=== PATIENT | female | born 1955 | race Caucasian/White ===

== ENCOUNTER 2017-09-23 13:02 | Emergency (ER) | payer MEDICAID ==
[~2017-09-23] VITALS: Ht 165.1 cm; Wt 99.8 kg
[~2017-09-23 13:02] MED LIST: AMLO5TAB2 PO; CYAN100023 PO; ERGO1CAP23 PO; FURO20TA3 PO; HYDR-4683 PO; LEVO25TA6 PO; LISI30TA36 PO; METO25TA5 PO; MONT10TA34 PO; POTA10TA34 PO; SIMV-13 PO
[2017-09-23 15:18] LABS: Basophils # (auto) 0.1 uL; Basophils % (auto) 0.3 % (0.0-2.0); Eosinophils # (auto) 0 uL; Eosinophils % (auto) 0.1 % (0.0-7.0); Hematocrit 41.4 % (36.0-46.0); Hemoglobin 13.8 g/dL (12.2-16.2); Lymphocytes # (auto) 0.9 uL; Lymphocytes % (auto) 4.5 % (10.0-50.0); Mean Corpuscular Hgb Conc. 33.4 g/dL (32.0-36.0); Mean Corpuscular Volume 92.9 fL (80.0-100.0); Monocytes % (auto) 4.7 % (0.0-12.0); Neutrophils # (auto) 18.9 uL; Neutrophils % (auto) 90.4 % (37.0-80.0); Nucleated Red Blood Cells % 0.1 %; Platelet Count (auto) 208 10^3/uL (140-450); Red Blood Cells 4.45 10^6/uL (4.0-5.20); Red Cell Distribution Width 13.5 % (11.8-14.3)
[2017-09-23 15:38] LABS: Albumin 2.9 g/dL (3.4-5.0); BUN/Creatinine Ratio 12.7; Bilirubin, Total 2.4 mg/dL (0.2-1.0); Calcium 8.3 mg/dL (8.5-10.1); Potassium 4.1 mmol/L (3.5-5.1); Total Protein 7.9 g/dL (6.4-8.2)
[2017-09-23] MEDS ORDERED: SODIUM CHLORIDE 0.9% 1,000 ML IV ONE (20:30)
[2017-09-23 21:33] LABS: INR 0.97 (0.9-1.15); Partial Thromboplastin Time 32.5 sec (22.64-33.71); Prothrombin Time 10.6 sec (9.37-12.3)
[2017-09-23 23:35] LABS: Fibrinogen 967.2 mg/dL (177-375)
[2017-09-24 03:29] VITALS: BP 139/78
== END 2017-09-24 08:53 | disposition left against medical advice (07) ==
LOC: ER 13:02
DX: M54.5 Low back pain (principal); R30.0 Dysuria; R10.30 Lower abdominal pain, unspecified; Z53.21 Procedure and treatment not carried out due to patient leaving prior to being seen by health care provider
CPT/HCPCS: 36415; 71010; 74176; 80053; 82553; 83605; 84484; 85025; 85379; 85384; 85610; 85730; 87040

== ENCOUNTER 2024-12-26 18:53 | Inpatient (IN) | payer OTHER, MEDICAID ==
[~2024-12-26] VITALS: Ht 165.1 cm; Wt 101.9 kg
[~2024-12-26 18:53] MED LIST changes: +AMLO1TAB22 PO; -AMLO5TAB2 PO; +ATOR40TA52 PO; +CHOL20003 PO; +DOCU250C12 PO; +GLIP5TAB21 PO; -HYDR-4683 PO; +HYDR-4833 PO; +INSU100S6 SC; -LISI30TA36 PO; +LISI30TA8 PO; +LORA-483 PO; +MONT-8 PO; -MONT10TA34 PO; +POTA-215 PO; -POTA10TA34 PO; +PREG200C36 PO; -SIMV-13 PO; +SIMV40TA18 PO
[2024-12-26] MEDS: SODIUM CHLORIDE 0.9% 1,000 ML IVB ONE (19:15)
--- NOTE | 2024-12-26 19:15 | ED.PDOC ---
Altered Mental Status HPI Comments 70-year-old female with only known history of DM and ESRD brought in by EMS presents with a chief complaint of ALOC and malaise. Per EMS, called 911 due to patient having generalized malaise for the past few days, but also states that for the past hour, patient has become altered and is not making coherent sense. Patient is currently more coherent now according to EMS upon arrival than when they arrived on scene. Patient thinks the year is 192. Patient was hypertensive and tachycardic upon arrival according to EMS. Blood sugar was 253. 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 Family History Family History: Unknown, Pt Confused Social History Smoker: Unknown, Pt Confused Alcohol: Unknown, Pt Confused Drugs: Unknown, Pt Confused Lives In: Home Constitutional: reports: malaise; denies: chills, diaphoresis, fatigue, fever, sweats, weakness, others EENTM: denies: blurred vision, double vision, ear bleeding, ear discharge, ear drainage, ear pain, ear ringing, eye pain, eye redness, hearing loss, mouth pain, mouth swelling, nasal discharge, nose bleeding, nose congestion, nose pain, photophobia, tearing, throat pain, throat swelling, voice changes, others Respiratory: denies: cough, hemoptysis, orthopnea, SOB at rest, shortness of breath, SOB with excertion, stridor, wheezing, others Cardiovascular: denies: chest pain, dizzy spells, diaphoresis, Dyspnea on exertion, edema, irregular heart beat, left arm pain, lightheadedness, palpitations, PND, syncope, others Gastrointestinal: denies: abdomen distended, abdominal pain, blood streaked bowels, constipated, diarrhea, dysphagia, difficulty swallowing, hematemesis, melena, nausea, poor appetite, poor fluid intake, rectal bleeding, rectal pain, vomiting, others Genitourinary: denies: abnormal vagina bleeding, burning, dyspareunia, dysuria, flank pain, frequency, hematuria, incontinence, pain, , vagina discharge, urgency, others Neurological: denies: dizziness, fainting, headache, left sided numbness, left sided weakness, numbness, paresthesia, pre-existing deficit, right sided numbness, right sided weakness, seizure, speech problems, tingling, tremors, weakness, others Musculoskeletal: denies: back pain, gout, joint pain, joint swelling, muscle pain, muscle stiffness, neck pain, others Integumetry: denies: bruises, change in color, change in hair/nails, dryness, laceration, lesions, lumps, rash, wounds, others Allergic/Immunocompromised: denies: Difficulty Healing, Frequent Infections, Hives, Itching, others Hematologic/Lymphatic: denies: anemia, blood clots, easy bleeding, easy bruising, swollen glands, others Endocrine: denies: excessive hunger, excessive sweating, excessive thirst, excessive urination, flushing, intolerance to cold, intolerance to heat, unexplained weight gain, unexplained weight loss, others Psychiatric: denies: anxiety, bipolar disorder, depression, hopeless, panic disorder, schizophrenia, sleepless, suicidal, others Unable to Obtain due to: Altered Mental Status All Other Systems: Reviewed and Negative Physical Exam General Appearance: No Apparent Distress, Normal HEENT: Normal ENT Inspection, Pharynx Normal, TMs Normal Neck: Full Range of Motion, Non-Tender, Normal, Normal Inspection Respiratory: Chest Non-Tender, Lungs Clear, No Accessory Muscle Use, No Respiratory Distress, Normal Breath Sounds Cardiovascular: No Edema, No JVD, No Murmur, No Gallop, Normal Peripheral Pulses, Regular Rate/Rhythm Breast Exam: Deferred Gastrointestinal: No Organomegaly, Non Tender, No Pulsatile Mass, Normal Bowel Sounds, Soft Genitalia: Deferred Pelvic: Deferred Rectal: Deferred Extremities: No calf tenderness, Normal capillary refill, Normal inspection, Normal range of motion, Non-tender, No pedal edema Musculoskeletal : Apperance: Normal Neurologic: Alert, 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 Was a procedure done?: No Differential Diagnosis (ALOC) Differential Diagnosis: Dehydration, Hypoglycemia, DKA, Encephalopathy, Meningitis, Sepsis, Hypoxemia, Closed Head Injury, Mass Lesion, SAH, Drug Overdose, ETOH Intoxication, Renal Failure, Other X-Ray, Labs, Meds, VS Vital Signs Date Time Temp Pulse Resp B/P (MAP) Pulse Ox O2 Delivery O2 Flow Rate FiO2 12/26/24 20:25 117 24 94 Nasal Cannula* 3 32 12/26/24 20:01 98.8 133 24 127/68 (87) 94 98.8 12/26/24 20:00 122 12/26/24 18:56 137 12/26/24 18:56 98.3 135 14 190/92 (124) 92 98.3 Lab Test 12/26/24 21:00 12/26/24 20:13 12/26/24 19:48 Range/Units Troponin I High Sensitivity Pending 284 *H </=34 ng/L White Blood Count 16.5 H 4.4-10.8 10^3/uL Red Blood Count 3.92 L 4.0-5.20 10^6/uL Hemoglobin 12.2 12.2-16.2 g/dL Hematocrit 36.6 36.0-46.0 % Mean Corpuscular Volume 93.4 80.0-100.0 fL Mean Corpuscular Hemoglobin 31.2 28.0-32.0 pg Mean Corpuscular Hemoglobin Concent 33.4 32.0-36.0 g/dL Red Cell Distribution Width 13.5 11.8-14.3 % Platelet Count 193 140-450 10^3/uL Mean Platelet Volume 10.1 6.9-10.8 fL Neutrophils (%) (Auto) 92.1 H 37.0-80.0 % Lymphocytes (%) (Auto) 3.5 L 10.0-50.0 % Monocytes (%) (Auto) 3.7 0.0-12.0 % Eosinophils (%) (Auto) 0.3 0.0-7.0 % Basophils (%) (Auto) 0.4 0.0-2.0 % Neutrophils # (Auto) 15.2 H 1.6-8.6 10 ^3/uL Lymphocytes # (Auto) 0.6 0.4-5.4 10 ^3/uL Monocytes # (Auto) 0.6 0-1.3 10 ^3/uL Eosinophils # (Auto) 0.1 0-0.8 10 ^3/uL Basophils # (Auto) 0.1 0-0.2 10 ^3/uL Nucleated Red Blood Cells 0.0 % Sodium Level 138 136-145 mmol/L Potassium Level 4.5 3.5-5.1 mmol/L Chloride Level 110 H 98-107 mmol/L Carbon Dioxide Level 15 L 20-31 mmol/L Anion Gap 13 5-15 Blood Urea Nitrogen 35 H 9-23 mg/dL Creatinine 2.38 H 0.550-1.02 mg/dL Glomerular Filtration Rate Calc 21 >90 mL/min BUN/Creatinine Ratio 14.7 10.0-20.0 Serum Glucose 241 H 74-106 mg/dL Lactic Acid Level 1.3 0.4-2.0 mmol/L Calcium Level 9.2 8.7-10.4 mg/dL Magnesium Level 1.4 L 1.6-2.6 mg/dL Total Bilirubin 0.6 0.2-1.0 mg/dL Aspartate Amino Transferase (AST) 18 13-40 U/L Alanine Aminotransferase (ALT) 13 7-40 U/L Alkaline Phosphatase 89 46-116 U/L Total Protein 7.3 5.7-8.2 g/dL Albumin 4.0 3.2-4.8 g/dL Lipase 79 H 12-53 U/L Salicylates Level < 3.0 -30 mg/dL Acetaminophen Level < 2.0 L 10.0-20.0 UG/ML Plasma/Serum Blood Alcohol 6.4 <10 mg/dL Urine Color Light-yellow Yellow Urine Clarity Turbid H Clear Urine pH 6.5 5.0-9.0 Urine Specific [place] 1.014 1.001-1.035 Urine Protein 3+ H Negative Urine Ketones Negative Negative Urine Blood 1+ H Negative /uL Urine Nitrite Negative Negative Urine Bilirubin Negative Negative Urine Urobilinogen Normal Negative mg/dL Urine Leukocyte Esterase 2+ Negative /uL Urine RBC 19 0 - 4 /hpf Urine WBC Clumps Present None Seen /hpf Urine Microscopic WBC 117 H 0-5 /HPF Urine Squamous Epithelial Cells Few <5 /hpf Urine Bacteria Mod H None Seen /hpf Urine Glucose 1+ H Normal mg/dL Urine Opiates Screen Neg NEGATIVE Urine Fentanyl Screen Neg NEGATIVE Urine Barbiturates Screen Neg NEGATIVE Urine Phencyclidine Screen Neg NEGATIVE Urine Amphetamines Screen Neg NEGATIVE Urine Benzodiazepines Screen Neg NEGATIVE Urine Cocaine Screen Neg NEGATIVE Urine Cannabinoids Screen Pos NEGATIVE Current Medications Medications (Trade) Dose Ordered Sig/Ayaan Route Start Time Stop Time Status Last Admin Sodium Chloride 1,000 ml @ 1,000 mls/hr Q1H ONCE IVB 12/26/24 19:15 12/26/24 20:14 DC 12/26/24 19:15 Time of 1ST Reevaluation: 19:29 Reevaluation 1ST: Unchanged Patient Education/Counseling: Diagnosis, Treatment, Prognosis Family Education/Counseling: No Family Present Sepsis Sepsis Reasesment Focused Exam Sepsis focused exam: focus exam completed (In the initial resuscitation at least 30 mL/kg of IV crystalloid fluid was NOT given within the first 3 hr due to concerns of fluid overload), time: (2099) Departure 1 Departure Time of Disposition: 21:38 Impression: Primary Impression: Altered mental status Additional Impressions: Metabolic encephalopathy UTI (urinary tract infection) Acute renal injury Intermediate coronary syndrome Disposition: ADMITTED INPATIENT Admit to: [facility] Condition: Stable Discharged With: Self Comments Altered Mental Status with Multiple Medical Problems Chief Complaint: Generalized weakness and confusion History of Present Illness: 70-year-old female with past medical history of hypertension, diabetes, and renal insufficiency who was brought in by ambulance after her found her at home with generalized weakness and confusion. Patient is noted to be confused to date and place but oriented to self. Initial workup reveals multiple acute medical issues including urinary tract infection with elevated WBC, elevated troponin, mild lipase elevation, acute kidney injury, hyperglycemia, and radiographic findings concerning for left lower lobe pneumonia. Review of Systems: Constitutional: Positive for generalized weakness Neurological: Positive for confusion Otherwise limited due to patient's mental status Lab Results: WBC: 16.5 Troponin: 284 Lipase: 79 (slightly elevated) BUN: 35 Creatinine: 2.38 Blood glucose: 241 Urinalysis: Consistent with UTI Imaging and Other Relevant Results: Chest X-ray: Left lower lobe opacity, possibly representing pneumonia CT Head: No acute pathology Medical Decision Making: Summary Statement: 70-year-old female with multiple comorbidities presenting with altered mental status found to have multiple acute medical problems including UTI, NSTEMI, acute kidney injury, and possible pneumonia. Problem List: 1. Urinary tract infection 2. Non-ST elevation myocardial infarction 3. Acute kidney injury 4. Left lower lobe pneumonia 5. Hyperglycemia Differential Diagnosis: Sepsis secondary to UTI/pneumonia, Acute coronary syndrome, Metabolic encephalopathy, Stroke, Dehydration ED Course: Patient received IV fluids, IV antibiotics (Rocephin and azithromycin), and aspirin. CT head obtained to rule out acute intracranial process. Multiple acute medical issues identified requiring inpatient admission. Assessment and Plan: 1. Altered Mental Status: - Multifactorial, likely due to combination of infection, renal dysfunction, and cardiac issue - Will require inpatient monitoring and management 2. Urinary Tract Infection: - Started on IV Rocephin - Continue antibiotics and monitor response 3. Non-ST Elevation Myocardial Infarction: - Troponin elevated at 284 - Started on aspirin - Requires admission for further cardiac workup and management 4. Acute Kidney Injury: - Cr 2.38, BUN 35 - Likely multifactorial due to infection and possible dehydration - IV fluids started 5. Left Lower Lobe Pneumonia: - Started on azithromycin - Continue antibiotics and monitor respiratory status 6. Hyperglycemia: - Blood glucose 241 - Will require monitoring and adjustment of diabetes management Disposition: Admit to hospital for management of multiple medical problems Billing Information: ICD-10: R41.0 - Disorientation ICD-10: N39.0 - Urinary tract infection ICD-10: N17.9 - Acute kidney failure, unspecified ICD-10: J18.9 - Pneumonia, unspecified organism ICD-10: I21.4 - Non-ST elevation myocardial infarction Critical Care Note Critical Care Time?: Yes (35 min-critical care time only) Critical care comment: Total critical care time: Approximately 36 minutes Due to a high probability of clinically significant, life threatening deteriora tion, the patient required my highest level of preparedness to intervene emergently and I personally spent this critical care time directly and personally managing the patient. This critical care time included obtaining a history; examining the patient; pulse oximetry; ordering and review of studies; arranging urgent treatment with development of a management plan; evaluation of patient's response to treatment; frequent reassessment; and, discussions with other providers. This critical care time was performed to assess and manage the high probability of imminent, life-threatening deterioration that could result in multi-organ failure. It was exclusive of separately billable procedures and treating other patients. Stability Stability form required: No Heart Score Heart Score: Heart Score Response (Comments) Value History Slightly Suspicious 0 EKG Normal 0 Age >65 2 Risk Factors 1 or 2 risk factors 1 Troponin 1-2 x's Normal limit 1 Total 4 I personally scribed for JEAN HOWELL MD ([email or web address]) on 12/26/24 at 19:14. Electronically submitted by Raudel Arango ([email or web address]). JEAN HOWELL MD Dec 26, 2024 19:14
--- NOTE | 2024-12-26 19:35 | DVH ---
CHEST RADIOGRAPH Indication: SOB Technique: Single frontal view of the chest was obtained Comparison: None FINDINGS: Lines and Tubes: None Lungs: No focal consolidation. Pleura: No effusion. No pneumothorax. Cardiomediastinal contours: Unremarkable Bones: Total right shoulder replacement IMPRESSION: 1. Increased density in the left lower lung field may be due to overlying breast tissue or airspace d isease.
--- NOTE | 2024-12-26 19:44 | DVH ---
EXAM: CT HEAD WITHOUT CONTRAST INDICATION: ALOC TECHNIQUE: CT of the head without intravenous contrast. Radiation Dose Information: CT Dose: CTDI volume is 48.79 mGy. Dose-length product is 879.57 mGy*cm The dose indicators for CT are the volume Computed Tomography (CT) Dose Index (CTDIvol) and the Dose Length Product (DLP), and are measured in units of mGy and mGy-cm, respectively. These indicators are not patient dose, but values generated from the CT scanner acquisition factors. The report includes radiation exposure data for exposures received during this examination. COMPARISON: None FINDINGS: There is no evidence of acute intracranial hemorrhage, extra-axial collection, mass effect, midline s hift, herniation or hydrocephalus. The ventricles, sulci and cisterns are age appropriate. The lawson-white differentiation is intact. Patchy periventricular and subcortical white matter hypoattenuation is nonspecific but may be related to small vessel ischemic disease. The visualized paranasal sinuses and mastoid air cells are clear. The surrounding soft tissues and osseous structures are unremarkable. IMPRESSION: 1. No acute intracranial hemorrhage 2. No CT findings of territorial ischemia.
[2024-12-26 20:24] LABS: Cannabinoid Screen, Urine Pos (NEGATIVE)
[2024-12-26 20:25] VITALS: PULSE 117; RESP 24; O2SAT 94
[2024-12-26 20:36] LABS: Amphetamine Screen, Urine Neg (NEGATIVE); Barbiturate Scree,Urine Neg (NEGATIVE); Benzodiazephine Screen, Urine Neg (NEGATIVE); Cocaine Screen, Urine Neg (NEGATIVE); Opiate Scree,Urine Neg (NEGATIVE); Phencyclidine Screen, Urine Neg (NEGATIVE)
[2024-12-26 20:40] LABS: Alanine Aminotransferase 13 U/L (7-40); Alkaline Phosphatase 89 U/L (46-116); Anion Gap 13 (5-15); Aspartate Aminotransferase 18 U/L (13-40); BUN/Creatinine Ratio 14.7 (10.0-20.0); Bilirubin, Total 0.6 mg/dL (0.2-1.0); Calcium 9.2 mg/dL (8.7-10.4); Potassium 4.5 mmol/L (3.5-5.1); Sodium 138 mmol/L (136-145); Total Protein 7.3 g/dL (5.7-8.2)
[2024-12-26 20:40] LABS: Urine Bacteria MOD /hpf (None Seen); Urine Blood 1+ /uL (Negative); Urine Clarity Turbid (Clear); Urine Color Light-Yellow (Yellow); Urine Protein, UAD 3+ (Negative); Urine Specific Gravity 1.014 (1.001-1.035); Urine Squamous Epithelial Cell FEW /hpf (<5); Urine Urobilinogen Normal (Negative); Urine WBC 117 /HPF (0-5); Urine WBC Clumps PRESENT /hpf (None Seen); Urine pH 6.5 (5.0-9.0)
[2024-12-26 20:43] LABS: Acetaminophen < 2.0 UG/ML (10.0-20.0); Blood Urea Nitrogen 35 mg/dL (9-23); Carbon Dioxide 15 mmol/L (20-31); Chloride 110 mmol/L (98-107); Glucose 241 mg/dL (74-106); Lipase 79 U/L (12-53); Magnesium 1.4 mg/dL (1.6-2.6); Salicylate < 3.0 mg/dL (-30)
[2024-12-26 20:51] LABS: Basophils # (auto) 0.1 10 ^3/uL (0-0.2); Basophils % (auto) 0.4 % (0.0-2.0); Eosinophils # (auto) 0.1 10 ^3/uL (0-0.8); Eosinophils % (auto) 0.3 % (0.0-7.0); Hematocrit 36.6 % (36.0-46.0); Hemoglobin 12.2 g/dL (12.2-16.2); Lymphocytes # (auto) 0.6 10 ^3/uL (0.4-5.4); Lymphocytes % (auto) 3.5 % (10.0-50.0); Mean Corpuscular Hemoglobin 31.2 pg (28.0-32.0); Mean Corpuscular Hgb Conc. 33.4 g/dL (32.0-36.0); Mean Corpuscular Volume 93.4 fL (80.0-100.0); Monocytes # (auto) 0.6 10 ^3/uL (0-1.3); Monocytes % (auto) 3.7 % (0.0-12.0); Neutrophils # (auto) 15.2 10 ^3/uL (1.6-8.6); Neutrophils % (auto) 92.1 % (37.0-80.0); Platelet Count (auto) 193 10^3/uL (140-450); Red Blood Cells 3.92 10^6/uL (4.0-5.20); Red Cell Distribution Width 13.5 % (11.8-14.3); White Blood Cell 16.5 10^3/uL (4.4-10.8)
[2024-12-26 21:14] LABS: Blood Alcohol 6.4 mg/dL (<10)
[2024-12-26] MEDS: ASPirin-EC 81 mg tab PO ONE (21:30)
[2024-12-26] MEDS: cefTRIAXone 1GM/50ML D5W 50 ML IV ONE (23:40)
[2024-12-26] MEDS: AZITHROMYCIN 500MG/ 250ML 250 ML IV ONE (23:40)
[2024-12-27] VITALS (8 sets, daily range): BP systolic 110–125; BP diastolic 48–71; PULSE 54–74; RESP 15–18; TEMP 97.7–98.1; O2SAT 95–98
[2024-12-27] MEDS: MAGNESIUM SULFATE 1GM/100ML 100 ML IV SCH (01:00)
[2024-12-27] MEDS ORDERED: DEXTROSE (50%) 50ML SYRG IV PRN (01:00)
[2024-12-27] MEDS ORDERED: MORPHINE SULFATE INJ 2 MG/ml SYRG IV PRN (01:00)
[2024-12-27] MEDS ORDERED: ACETAMINOPHEN 325 MG TAB PO PRN (01:00)
[2024-12-27 01:18] LABS: Basophils # (auto) 0.2 10 ^3/uL (0-0.2); Basophils % (auto) 0.9 % (0.0-2.0); Eosinophils # (auto) 0 10 ^3/uL (0-0.8); Hematocrit 32.9 % (36.0-46.0); Hemoglobin 11.1 g/dL (12.2-16.2); Lymphocytes # (auto) 1.3 10 ^3/uL (0.4-5.4); Lymphocytes % (auto) 7.3 % (10.0-50.0); Mean Corpuscular Hemoglobin 31.3 pg (28.0-32.0); Mean Corpuscular Hgb Conc. 33.6 g/dL (32.0-36.0); Mean Corpuscular Volume 92.9 fL (80.0-100.0); Monocytes # (auto) 0.8 10 ^3/uL (0-1.3); Monocytes % (auto) 4.7 % (0.0-12.0); Neutrophils # (auto) 15.5 10 ^3/uL (1.6-8.6); Neutrophils % (auto) 87.1 % (37.0-80.0); Platelet Count (auto) 208 10^3/uL (140-450); Red Blood Cells 3.54 10^6/uL (4.0-5.20); Red Cell Distribution Width 13.4 % (11.8-14.3); White Blood Cell 17.8 10^3/uL (4.4-10.8)
[2024-12-27 01:24] LABS: INR 1.06 (0.9-1.15); Partial Thromboplastin Time 28.1 SEC (24.5-34.5); Prothrombin Time 11.2 sec (9.3-11.8)
--- NOTE | 2024-12-27 02:50 | CONS ---
Pharmacy Clinical Information: Chemistry Test 12/26/24 20:13 Albumin 4.0 g/dL (3.2-4.8) Calcium Level 9.2 mg/dL (8.7-10.4) Magnesium Level 1.4 mg/dL (1.6-2.6) L Total Protein 7.3 g/dL (5.7-8.2) Coagulation Test 12/26/24 23:32 Prothrombin Time 11.2 sec (9.3-11.8) Prothrombin Time INR 1.06 (0.9-1.15) Activated Partial Thromboplast Time 28.1 SEC (24.5-34.5) D-Dimer, Quantitative 1.38 mg/L FEU (0.0-0.49) H Lipid panel Test 12/26/24 20:13 Lipase 79 U/L (12-53) H LFT Test 12/26/24 20:13 Alanine Aminotransferase (ALT) 13 U/L (7-40) Alkaline Phosphatase 89 U/L (46-116) Aspartate Amino Transferase (AST) 18 U/L (13-40) Total Bilirubin 0.6 mg/dL (0.2-1.0) Labs 12/26 @ 2012: H/H=12.2/36.6, Uqc=806, RN confirmed actual scale wt is 100 kg Elevated trop=ACS protocol Coags 12/26 @ 2: PTT=28.1, PT=11.2, INR=1.06 Per RN, pt showing minor signs of bruising, but pt states that she bruises easily. RN stated pt not on any AC at home. Notified RN to bolus 4000 units x 1 then start at rate 10 ml/sb=6775 units/hr. Next PTT @ 0900. RICARDA ROSA Dec 27, 2024 02:50
[2024-12-27] MEDS: HEPARIN SODIUM (PORCINE) 5000 UNITS/ML 1ML VIAL IV ONE ×2 (02:59→12:29)
[2024-12-27] MEDS: HEPARIN DRIP/D5W 100UNITS/ML 250 ML IV SCH ×2 (03:00→12:30)
--- NOTE | 2024-12-27 04:51 | DVHHP2 ---
History of Present Illness Reason for Visit: Altered mental status History of Present Illness 70-year-old female presents for evaluation of altered mental status. Patient presented after has been noted patient becoming progressively more altered in the past couple of days. Patient is currently alert and oriented x3. Denies c hest pain or shortness for breath. No abdominal pain or nausea. Past Medical History Diabetes mellitus, end-stage renal disease, hypertension Past Surgical History Unknown Family History Noncontributory Lives: with Family Review of Systems Review of Systems Review of systems are currently negative otherwise addressed in HPI. Allergies: Coded Allergies: NO KNOWN ALLERGIES (Unverified , 12/26/24) Medications Current Medications Medications Dose Ordered Sig/Ayaan Route Start Time Stop Time Status Last Admin Dose Admin Heparin Sodium/ Dextrose 250 ml @ 10 mls/hr Q24H IV 12/27/24 02:30 12/27/24 03:00 10 MLS/HR Ceftriaxone Sodium 50 ml @ 100 mls/hr Q24H IV 12/27/24 21:00 Azithromycin 250 ml @ 125 mls/hr Q24H IV 12/27/24 21:00 Diagnostic Test (Pha) 1 strip Q6HR 12/27/24 06:00 Insulin Human Regular Q6HR SC 12/27/24 06:00 Dextrose 50 ml UD PRN IV 12/27/24 01:00 Acetaminophen/ Hydrocodone Bitart 1 tab Q4HP PRN PO 12/27/24 01:00 Ondansetron HCl 4 mg Q4HP PRN IV 12/27/24 01:00 Acetaminophen 650 mg Q6HP PRN PO 12/27/24 01:00 Nitroglycerin 0.4 mg Q5MINP PRN SL 12/27/24 01:00 Morphine Sulfate 2 mg Q30M PRN IV 12/27/24 01:00 Exam Vital Signs Vital Signs Date Time Temp Pulse Resp B/P (MAP) Pulse Ox O2 Delivery O2 Flow Rate FiO2 12/27/24 04:00 78 20 108/74 (85) 97 12/26/24 20:25 Nasal Cannula* 3 32 12/26/24 20:01 98.8 98.8 Exam Gen: 70-year-old female in mild distress Skin: Warm, dry, normal color and texture, no rash. HEENT: Normocephalic atraumatic, mucous membranes moist and pink. Neck: Cervical and supraclavicular nodes normal without enlargement, trachea is midline, thyroid gland is normal without masses. Pulmonary: Clear to auscultation and percussion bilaterally. Cardiac: Regular rate and rhythm. No murmur Abdomen: Soft, nontender, nondistended, bowel sounds present all 4 quadrants, no guarding, no rigidity, no organomegaly. Extremities: No cyanosis, clubbing, no edema Neuro: Cranial nerves II through XII grossly intact, normal affect and speech, no focal motor deficits. Labs/Xrays ORDERING PHYSICIAN: JEAN HOWELL MD PROCEDURE(s): CXRP - CHEST PORTABLE REASON: SOB ORDER NUMBER(s): [id number], ACCESSION NUMBER(s): [id number] CHEST RADIOGRAPH Indication: SOB Technique: Single frontal view of the chest was obtained Comparison: None FINDINGS: Lines and Tubes: None Lungs: No focal consolidation. Pleura: No effusion. No pneumothorax. Cardiomediastinal contours: Unremarkable Bones: Total right shoulder replacement IMPRESSION: 1. Increased density in the left lower lung field may be due to overlying breast tissue or airspace disease. RING PHYSICIAN: JEAN HOWELL MD PROCEDURE(s): HWOCT - HEAD WITHOUT CONTRAST REASON: ALOC ORDER NUMBER(s): [id number], ACCESSION NUMBER(s): [id number] EXAM: CT HEAD WITHOUT CONTRAST INDICATION: ALOC TECHNIQUE: CT of the head without intravenous contrast. Radiation Dose Information: CT Dose: CTDI volume is 48.79 mGy. Dose-length product is 879.57 mGy*cm The dose indicators for CT are the volume Computed Tomography (CT) Dose Index (CTDIvol) and the Dose Length Product (DLP), and are measured in units of mGy and mGy-cm, respectively. These indicators are not patient dose, but values generated from the CT scanner acquisition factors. The report includes radiation exposure data for exposures received during this examination. COMPARISON: None FINDINGS: There is no evidence of acute intracranial hemorrhage, extra-axial collection, mass effect, midline shift, herniation or hydrocephalus. The ventricles, sulci and cisterns are age appropriate. The lawson-white differentiation is intact. Patchy periventricular and subcortical white matter hypoattenuation is nonspecific but may be related to small vessel ischemic disease. The visualized paranasal sinuses and mastoid air cells are clear. The surrounding soft tissues and osseous structures are unremarkable. IMPRESSION: 1. No acute intracranial hemorrhage 2. No CT findings of territorial ischemia. Labs Test 12/27/24 01:05 12/26/24 23:32 12/26/24 20:13 12/26/24 19:48 Range/Units White Blood Count 17.8 H 4.4-10.8 10^3/uL Red Blood Count 3.54 L 4.0-5.20 10^6/uL Hemoglobin 11.1 L 12.2-16.2 g/dL Hematocrit 32.9 #L 36.0-46.0 % Mean Corpuscular Volume 92.9 80.0-100.0 fL Mean Corpuscular Hemoglobin 31.3 28.0-32.0 pg Mean Corpuscular Hemoglobin Concent 33.6 32.0-36.0 g/dL Red Cell Distribution Width 13.4 11.8-14.3 % Platelet Count 208 140-450 10^3/uL Mean Platelet Volume 10.0 6.9-10.8 fL Neutrophils (%) (Auto) 87.1 H 37.0-80.0 % Lymphocytes (%) (Auto) 7.3 L 10.0-50.0 % Monocytes (%) (Auto) 4.7 0.0-12.0 % Eosinophils (%) (Auto) 0.0 0.0-7.0 % Basophils (%) (Auto) 0.9 0.0-2.0 % Neutrophils # (Auto) 15.5 H 1.6-8.6 10 ^3/uL Lymphocytes # (Auto) 1.3 0.4-5.4 10 ^3/uL Monocytes # (Auto) 0.8 0-1.3 10 ^3/uL Eosinophils # (Auto) 0 0-0.8 10 ^3/uL Basophils # (Auto) 0.2 0-0.2 10 ^3/uL Nucleated Red Blood Cells 0.0 % Prothrombin Time 11.2 9.3-11.8 sec Prothrombin Time INR 1.06 0.9-1.15 Activated Partial Thromboplast Time 28.1 24.5-34.5 SEC D-Dimer, Quantitative 1.38 H 0.0-0.49 mg/L FEU Troponin I High Sensitivity 1068 *H </=34 ng/L Sodium Level 138 136-145 mmol/L Potassium Level 4.5 3.5-5.1 mmol/L Chloride Level 110 H 98-107 mmol/L Carbon Dioxide Level 15 L 20-31 mmol/L Anion Gap 13 5-15 Blood Urea Nitrogen 35 H 9-23 mg/dL Creatinine 2.38 H 0.550-1.02 mg/dL Glomerular Filtration Rate Calc 21 >90 mL/min BUN/Creatinine Ratio 14.7 10.0-20.0 Serum Glucose 241 H 74-106 mg/dL Lactic Acid Level 1.3 0.4-2.0 mmol/L Calcium Level 9.2 8.7-10.4 mg/dL Magnesium Level 1.4 L 1.6-2.6 mg/dL Total Bilirubin 0.6 0.2-1.0 mg/dL Aspartate Amino Transferase (AST) 18 13-40 U/L Alanine Aminotransferase (ALT) 13 7-40 U/L Alkaline Phosphatase 89 46-116 U/L Total Protein 7.3 5.7-8.2 g/dL Albumin 4.0 3.2-4.8 g/dL Lipase 79 H 12-53 U/L Salicylates Level < 3.0 -30 mg/dL Acetaminophen Level < 2.0 L 10.0-20.0 UG/ML Plasma/Serum Blood Alcohol 6.4 <10 mg/dL Urine Color Light-yellow Yellow Urine Clarity Turbid H Clear Urine pH 6.5 5.0-9.0 Urine Specific [place] 1.014 1.001-1.035 Urine Protein 3+ H Negative Urine Ketones Negative Negative Urine Blood 1+ H Negative /uL Urine Nitrite Negative Negative Urine Bilirubin Negative Negative Urine Urobilinogen Normal Negative mg/dL Urine Leukocyte Esterase 2+ Negative /uL Urine RBC 19 0 - 4 /hpf Urine WBC Clumps Present None Seen /hpf Urine Microscopic WBC 117 H 0-5 /HPF Urine Squamous Epithelial Cells Few <5 /hpf Urine Bacteria Mod H None Seen /hpf Urine Glucose 1+ H Normal mg/dL Urine Opiates Screen Neg NEGATIVE Urine Fentanyl Screen Neg NEGATIVE Urine Barbiturates Screen Neg NEGATIVE Urine Phencyclidine Screen Neg NEGATIVE Urine Amphetamines Screen Neg NEGATIVE Urine Benzodiazepines Screen Neg NEGATIVE Urine Cocaine Screen Neg NEGATIVE Urine Cannabinoids Screen Pos NEGATIVE Assessment/Plan Assessment/Plan Assessment NSTEMI Metabolic encephalopathy Community-acquired pneumonia UTI Electrolyte imbalance Diabetes mellitus Renal failure Plan Admit the patient to telemetry to the hospitalist Cardiology consultation Heparin drip Nephrology consultation Continue treatment per orders. Plan discussed with: Patient My Orders Orders - CIARA HERNANDEZ AGACNP Procedure Category Date Status Time * Cardiology Consult CONS 12/27/24 Transmitted 00:51 *[facility] CONS 12/27/24 Transmitted -[place] 00:51 Platelet Monitoring [facility] 12/27/24 In Process 00:51 Heparin Per [facility] 12/27/24 In Process Standardized Proce 00:51 Discontinue All Im [facility] 12/27/24 In Process Injections 00:51 Heparin Drip/D5w PHA 12/27/24 In Process 100units/Ml 02:30 Stat Ekg For Chest [facility] 12/27/24 In Process Pain 00:51 Ceftriaxone 1gm/50ml PHA 12/27/24 In Process D5w (Rocephin) 21:00 Azithromycin 500mg/ PHA 12/27/24 In Process 250ml (Zithromax 50 21:00 Basic Metabolic Panel LAB 12/28/24 Verified 04:00 Glucose Blood PHA 12/27/24 In Process (Accu-Chek Comfort 06:00 Insulin R (Human) PHA 12/27/24 In Process (Insulin R) 06:00 Dextrose 50% Syringe PHA 12/27/24 In Process 01:00 Admit ADMIT 12/27/24 Transmitted 00:51 Hydrocodone-Acet PHA 12/27/24 In Process 5/325mg Tab ([place] 01:00 Ondansetron Hcl PHA 12/27/24 In Process (Zofran) 01:00 Complete Blood Count LAB 12/28/24 Verified 04:00 Echo 2d Mode Cardiac US 12/27/24 Logged DOP 00:51 Condition: Fair [facility] 12/27/24 In Process 00:51 Acetaminophen Tablet PHA 12/27/24 In Process (Tylenol Tablet) 01:00 Bedrest With Bathroom [facility] 12/27/24 In Process Privileg 00:51 Nitroglycerin PHA 12/27/24 In Process Sublingual ([place]tro[place] 01:00 Morphine Sulfate PHA 12/27/24 In Process Injection 01:00 Stat Ekg For Chest [facility] 12/27/24 In Process Pain 00:51 Notify Md Of Changes [facility] 12/27/24 In Process From Base 00:51 Medical Delivery Technician For [facility] 12/27/24 In Process 24 Hours 00:51 Emergency Dysrhythmia [facility] 12/27/24 In Process Protocol 00:51 Rhythm Strips Once [facility] 12/27/24 In Process Every Shift 00:51 Oxygen By Nasal RT 12/27/24 Transmitted Cannula 00:51 PTPTT LAB 12/27/24 Logged 09:00 Heparin Per Pharmacy [facility] 12/27/24 In Process Protocol 02:47 Date of Service: Dec 26, 2024 Billing Provider: CIARA HERNANDEZ Common Visit Codes: [id number] INP/OBS CARE (HIGH) CIARA HERNANDEZ Dec 27, 2024 04:51
[2024-12-27 05:11] LABS: Triglycerides 140 mg/dL (< 150)
[2024-12-27 05:12] LABS: LDL Cholesterol 53 mg/dL (< 100)
[2024-12-27 05:13] LABS: Cholesterol 112 mg/dL (< 200)
[2024-12-27 05:16] LABS: HDL Cholesterol 33 mg/dL (40-59)
[2024-12-27] MEDS: ACCU-CHEK COMFORT CURVE STRIP VI SCH (06:23)
[2024-12-27] MEDS: InsuLIN REG 1unit/0.01ml Soln (100units/ml) SC SCH (06:29)
--- NOTE | 2024-12-27 07:10 | ECG ---
[facility] Test Date: 2024-12-26 Test Time: 18:56:32 Pat Name: JOÃO HEATON [facility] F Molder: ericka : 1955 Requested By: JEAN HOWELL Order Number: [id number] Reading MD: Vignesh Lloyd Measurements Intervals [place] Rate: 137 P: -29 CA: 89 QRS: 133 QRSD: 86 T: 42 QT: 333 QTc: 503 Interpretive Statements Sinus tachycardia Consider right ventricular hypertrophy Prolonged QT interval Electronically Signed On 12-28-2024 18:43:06 PDT by Vignesh Lloyd Please click the below link to view image of tracing.
[2024-12-27 10:49] LABS: INR 1.06 (0.9-1.15); Partial Thromboplastin Time 29.8 SEC (24.5-34.5); Prothrombin Time 11.2 sec (9.3-11.8)
--- NOTE | 2024-12-27 11:15 | DVHPN2 ---
Subjective Patient continues to have generalized weakness, also reporting having left calf pain. Reviewed: Care Plan, H&P, Labs, Medications Changes from previous H/P or p: No Changes General: Per HPI Objective Vitals Vital Signs Date Time Temp Pulse Resp B/P (MAP) Pulse Ox O2 Delivery O2 Flow Rate FiO2 12/27/24 08:00 71 12/27/24 07:55 Nasal Cannula* 3 32 12/27/24 05:43 98.1 18 110/71 (84) 98 98.1 Intake/Output Intake and Output 12/27/24 07:00 Intake Total 1510 ml Balance 1510 ml Intake Oral 0 ml IV Total 1510 ml # Voids 2 General Appearance: Alert, Oriented X3, Cooperative, mild distress, Other (Generalized weakness) HEENT: Atraumatic, PERRLA Lungs: Clear to auscultation, Normal air movement Cardiovascular: Normal S1, Normal S2 Genitourinary: No Apparent Abnormalities Musculoskeletal: Normal sensory function, Normal motor function Extremities: Other (Positive Homans sign to left lower extremity) Neuro: Normal speech Skin: Dry, Intact Psych/Mental Status: Mental status NL, Mood NL Medications Current Medications Medications Dose Ordered Sig/Ayaan Route Start Time Stop Time Status Last Admin Dose Admin Heparin Sodium/ Dextrose 250 ml @ 10 mls/hr Q24H IV 12/27/24 02:30 12/27/24 03:00 10 MLS/HR Ceftriaxone Sodium 50 ml @ 100 mls/hr Q24H IV 12/27/24 21:00 Azithromycin 250 ml @ 125 mls/hr Q24H IV 12/27/24 21:00 Diagnostic Test (Pha) 1 strip Q6HR 12/27/24 06:00 12/27/24 06:23 1 STRIP Insulin Human Regular Q6HR SC 12/27/24 06:00 12/27/24 06:29 3 UNITS Dextrose 50 ml UD PRN IV 12/27/24 01:00 Acetaminophen/ Hydrocodone Bitart 1 tab Q4HP PRN PO 12/27/24 01:00 Ondansetron HCl 4 mg Q4HP PRN IV 12/27/24 01:00 Acetaminophen 650 mg Q6HP PRN PO 12/27/24 01:00 Nitroglycerin 0.4 mg Q5MINP PRN SL 12/27/24 01:00 Morphine Sulfate 2 mg Q30M PRN IV 12/27/24 01:00 Laboratory Results Laboratory Tests 12/26/24 20:13 12/27/24 01:05 Chemistry Test 12/26/24 20:13 Albumin 4.0 g/dL (3.2-4.8) Calcium Level 9.2 mg/dL (8.7-10.4) Magnesium Level 1.4 mg/dL (1.6-2.6) L Total Protein 7.3 g/dL (5.7-8.2) Coagulation Test 12/26/24 23:32 12/27/24 09:57 Prothrombin Time 11.2 sec (9.3-11.8) 11.2 sec (9.3-11.8) Prothrombin Time INR 1.06 (0.9-1.15) 1.06 (0.9-1.15) Activated Partial Thromboplast Time 28.1 SEC (24.5-34.5) 29.8 SEC (24.5-34.5) D-Dimer, Quantitative 1.38 mg/L FEU (0.0-0.49) H Lipid panel Test 12/26/24 20:13 12/27/24 01:05 Lipase 79 U/L (12-53) H Cholesterol Level 112 mg/dL (< 200) HDL Cholesterol 33 mg/dL (40-59) L Triglycerides Level 140 mg/dL (< 150) LFT Test 12/26/24 20:13 Alanine Aminotransferase (ALT) 13 U/L (7-40) Alkaline Phosphatase 89 U/L (46-116) Aspartate Amino Transferase (AST) 18 U/L (13-40) Total Bilirubin 0.6 mg/dL (0.2-1.0) HgA1c, TSH Test 12/27/24 01:05 Thyroid Stimulating Hormone (TSH) 3.04 uIU/mL (0.55-4.78) Urinalysis Test 12/26/24 19:48 Urine Color Light-yellow (Yellow) Urine Clarity Turbid (Clear) H Urine pH 6.5 (5.0-9.0) Urine Specific [place] 1.014 (1.001-1.035) Urine Protein 3+ (Negative) H Urine Ketones Negative (Negative) Urine Blood 1+ /uL (Negative) H Urine Nitrite Negative (Negative) Urine Bilirubin Negative (Negative) Urine Urobilinogen Normal mg/dL (Negative) Urine Leukocyte Esterase 2+ /uL (Negative) Urine RBC 19 /hpf (0 - 4) Urine WBC Clumps Present /hpf (None Seen) Urine Microscopic WBC 117 /HPF (0-5) H Urine Squamous Epithelial Cells Few /hpf (<5) Urine Bacteria Mod /hpf (None Seen) H Urine Glucose 1+ mg/dL (Normal) H Labs and/or images reviewed: Labs reviewed by me, Image(s) reviewed by me Assessment/Plan Assessment/Plan Impression: -metabolic encephalopathy secondary to sepsis -Sepsis, probably secondary to UTI and pneumonia -community-acquired pneumonia, probable Gram-positive/Gram-negative etiology -acute hypoxic respiratory failure -rule out PE, DVT -diabetes mellitus -acute kidney injury, vasomotor nephropathy -underlying CKD stage IIIB/four -obesity -deconditioning -NSTEMI ? type2, with serial elevation in troponin level. Rule out type 1 Plan: -further discussion with the patient and has been reveals that the patient has been in bed the past several days with reported chills. Symptoms exam worse with patient having altered mental status according to the . -change antibiotic therapy to Meropenem to cover both community-acquired pneumonia and complicated cystitis -pruitt cultures -cardiology consultation, echocardiogram pending -regular insulin sliding scale -nephrology consultation -renal ultrasound -DVT and V/Q scan -repeat labs in a.m. -long discussion made with the patient as well as has been who was bedside. All questions answered. Critical care time spent with patient discussing and formulating plan of care: 40 minutes. This does not include time spent performing procedures. This medical document was created using an electronic medical record system with [employer] dictation system. Although this document has been carefully reviewed, there may still be some phonetic and typographical errors. These areas are purely typographical due to imperfections of the software programs, and do not reflect any compromise in the patient's medical care. Plan discussed with: Patient, Spouse, Other (RN) My Orders Orders - BELA WARNER NP Procedure Category Date Status Time Hemoglobin A1c LAB 12/27/24 Verified 11:04 Bilat Lower Dvt US 12/27/24 Verified 11:04 Nm Vq Scan NM 12/27/24 Verified 11:04 Urine Bacterial OVIDIO 12/27/24 Verified Culture 11:04 Kidney US 12/27/24 Verified 11:04 Meropenem 500mg PHA 4/3/25 Verified Q12h([id number] 22:00 Date of Service: Dec 27, 2024 Billing Provider: BELA WARNER NP Common Visit Codes: [id number] CARE 30-74 MIN BELA WARNER NP Dec 27, 2024 11:14
--- NOTE | 2024-12-27 11:32 | CONS ---
Pharmacy Clinical Information: BOLUS YES TEMPLATE: SPOKE TO MARILIN THAPA REGARDING HEPARIN DOSE CHANGE CURRENT DOSE: 1000 UNITS/HR CURRENT APTT: 29.8 ON 12/27/24 @0957 BOLUS: YES, 5000 UNITS/HR INCREASE (NEW DOSE): 1300 UNITS/HR DATE AND TIME OF NEW STARTED: 12/27/24 @1130 NEXT APTT: 12/27/24 @1730 MARILIN THAPA READ BACK NEW DOSE: 1300 UNITS/HR MARTIR LUNA PHARMACIST Dec 27, 2024 11:32
--- NOTE | 2024-12-27 12:05 | DVH ---
US BiLat Lower DVT HISTORY: Pain to left Calve COMPARISON: None TECHNIQUE: Duplex Doppler evaluation of the deep venous system of the lower extremity from the common femoral veins, superficial femoral vein, great saphenous vein, deep femoral vein, popliteal vein, an d calf veins, including color Doppler and spectral/pulsed waveform analysis, was performed. FINDINGS: Right: - Common femoral vein: Compressible - Deep femoral vein: Compressible - Femoral vein: Compressible - Popliteal vein: Compressible - Posterior tibial vein: Waveforms present - Other: Nothing Left: - Common femoral vein: Compressible - Deep femoral vein: Compressible - Femoral vein: Compressible - Popliteal vein: Compressible - Posterior tibial vein: Waveforms present - Other: Nothing IMPRESSION: No right or left lower extremity deep venous thrombosis.
--- NOTE | 2024-12-27 12:07 | DVH ---
US KIDNEY HISTORY: RAMSES COMPARISON: None TECHNIQUE: Transverse and longitudinal grayscale and color Doppler images were obtained of the kidney s and bladder. FINDINGS: Right kidney: Size: 9.3 cm Cortical thickness: Normal Echogenicity: Normal Stones: None Masses: 2.5 cm cyst. Hydronephrosis: None Ureters: Not well visualized. Other: None Left kidney: Size: 9.8 cm Cortical thickness: Normal Echogenicity: Normal Stones: None Masses: None Hydronephrosis: None Ureters: Not well visualized. Other: None Bladder: Decompressed. Other: None. IMPRESSION: Unremarkable renal ultrasound.
[2024-12-27] MEDS: NITROGLYCERIN 0.4 MG SL TAB SL PRN (12:25)
--- NOTE | 2024-12-27 13:03 | DVHINCON2 ---
Date Seen: Dec 27, 2024 Referring Physician BRIGITTE Chavez Reason for Consultation Elevated troponin History of Present Illness This is a 69-year-old female patient who presents to the emergency room with chief complaint of altered level of mentation, chills, and generalized weakness. Cardiology has been consulted at this time for elevated troponin levels. Initial twelve lead electrocardiogram reveals sinus tachycardia with prolonged QTc interval. Initial troponin level of 284ng/L with peak level at 2137ng/L. Prior to emergency room arrival, the patient denies any cardiac symptoms. At time of assessment, the patient does mention chest pain when she coughs. She describes it as provoked by coughing, sharp in nature, substernal, and nonradiating. Significant past medical history includes hypertension, dyslipidemia, chronic kidney disease, TIA, type 2 diabetes mellitus, history of tobacco use, and morbid obesity. The patient denies following up with a wireless sales representative in the outpatient setting. Past Medical History Past medical history reviewed. No other significant than mentioned above. Past Surgical History Right shoulder repair Partial thyroidectomy Right knee replacement Family History Family history reviewed. Social History Patient has a 60 pack-year history, quit smoking approximately two years ago Denies any illicit drug use Denies any alcohol use Allergies: Coded Allergies: NO KNOWN ALLERGIES (Unverified , 12/26/24) Home Meds Reported Medications Insulin Glargine (Insulin Glargine) 100 Unit/Ml Gina, UNIT SC UD for 88 Days, #15 425 Pregabalin (Pregabalin) 200 Mg Cap, 1 CAP PO DAILY for 100 Days, #100 425 Loratadine (CLARITIN TABLET) 10 Mg Tb, 1 TAB PO DAILY for 100 Days, #100 425 Atorvastatin Calcium (ATORVASTATIN CALCIUM) 40 Mg Tab, 1 TAB PO DAILY for 100 Days, #100 25 Cholecalciferol (Vitamin D-3 Super Strengt) 2,000 Unit Tab, 1 TAB PO DAILY for 100 Days, #100 425 Docusate Sodium (Docusate Sodium) 250 Mg Cap, 1 PO DAILY for 100 Days, #100 25 Glipizide (Glipizide) 5 Mg Tab, 1 TAB PO DAILY for 100 Days, #100 425 Levothyroxine Sodium (Levothyroxine Sodium) 25 Mcg Tab, 1 TAB PO DAILY for 30 Days, #30 12/27/24 Home Meds Home medications reviewed. Current Medications Current Medications Medications (Trade) Dose Ordered Sig/Ayaan Route PRN Reason Start Time Stop Time Status Last Admin Heparin Sodium/ Dextrose 250 ml @ 10 mls/hr Q24H IV 12/27/24 02:30 12/27/24 11:26 DC 12/27/24 03:00 Ceftriaxone Sodium 50 ml @ 100 mls/hr Q24H IV 12/27/24 21:00 12/27/24 11:08 DC Azithromycin 250 ml @ 125 mls/hr Q24H IV 12/27/24 21:00 12/27/24 11:08 DC Magnesium Sulfate/ Dextrose 100 ml @ 100 mls/hr Q1H IV 12/27/24 01:00 12/27/24 02:59 DC 12/27/24 02:00 Diagnostic Test (Pha) (Accu-Chek Comfort Curve T) 1 strip Q6HR 12/27/24 06:00 12/27/24 11:41 Insulin Human Regular (InsuLIN R) Q6HR SC 12/27/24 06:00 12/27/24 06:29 Dextrose 50 ml UD PRN IV Blood Sugar LESS THAN 60 12/27/24 01:00 Acetaminophen/ Hydrocodone Bitart ([place] 5/325MG Tab) 1 tab Q4HP PRN PO MODERATE PAIN (4-6 PAIN SCALE) 12/27/24 01:00 Ondansetron HCl (Zofran) 4 mg Q4HP PRN IV NAUSEA / VOMITING 12/27/24 01:00 Acetaminophen (Tylenol Tablet) 650 mg Q6HP PRN PO PAIN SCALE 1-3 OR TEMP>100.4 12/27/24 01:00 Nitroglycerin (Ntrostat Sublingual) 0.4 mg Q5MINP PRN SL FOR CHEST PAIN 12/27/24 01:00 12/27/24 12:25 Morphine Sulfate 2 mg Q30M PRN IV FOR CHEST PAIN 12/27/24 01:00 Meropenem 50 ml @ 17 mls/hr Q12HR IV 12/27/24 22:00 Heparin Sodium/ Dextrose 250 ml @ 13 mls/hr [id number] IV 12/27/24 11:30 12/27/24 12:30 Review of Systems Constitutional: Generalized weakness Ears, Nose, & Throat: No symptom reported Eyes: No symptom reported Neurological: Altered level of mentation Pulmonary/Respiratory: No symptoms reported Cardiovascular: No symptom reported Gastrointestinal: No symptom reported Genitourinary: No symptom reported Musculoskeletal: No symptom reported Skin: No symptom reported Psychiatric: No symptom reported Endocrine: No symptom reported Hematologic/Lymphatic: No symptom reported Vital Signs Vital Signs Date Time Temp Pulse Resp B/P (MAP) Pulse Ox O2 Delivery O2 Flow Rate FiO2 12/27/24 12:25 104/66 12/27/24 09:00 98.1 70 16 97 98.1 12/27/24 07:55 Nasal Cannula* 3 32 Physical Exam General Appearance: Cooperative. Morbidly obese Pulmonary/Respiratory: Clear, bilateral breaths sounds. Cardiovascular/Chest: Regular rate and rhythm. Peripheral Pulses: 2+ Radial (R). 2+ Radial (L). 2+ Pedal (R). 2+ Pedal (L) Abdominal Exam: Normal bowel sounds. Ankle Exam: Negative ankle edema Lower extremities: Negative lower extremity edema Neuro/Mental Status: A/OX4, coherent. Thoughts/Psych: Normal thought pattern. Appropriate mood and affect. Good judgment and insight. Appearance: No acute distress. Skin Exam: Normal inspection. Normal color. Warm and dry. Labs/Diagnostic Data Labs Test 12/27/24 11:53 12/27/24 11:30 12/27/24 11:04 12/27/24 09:57 Range/Units Troponin I High Sensitivity 2006 *H </=34 ng/L POC Glucose 158 H 70-106 mg/dl Hemoglobin A1c 7.8 H <5.7 % A1C Prothrombin Time 11.2 9.3-11.8 sec Prothrombin Time INR 1.06 0.9-1.15 Activated Partial Thromboplast Time 29.8 24.5-34.5 SEC Test 12/27/24 01:05 12/26/24 23:32 12/26/24 20:13 12/26/24 19:48 Range/Units White Blood Count 17.8 H 4.4-10.8 10^3/uL Red Blood Count 3.54 L 4.0-5.20 10^6/uL Hemoglobin 11.1 L 12.2-16.2 g/dL Hematocrit 32.9 #L 36.0-46.0 % Mean Corpuscular Volume 92.9 80.0-100.0 fL Mean Corpuscular Hemoglobin 31.3 28.0-32.0 pg Mean Corpuscular Hemoglobin Concent 33.6 32.0-36.0 g/dL Red Cell Distribution Width 13.4 11.8-14.3 % Platelet Count 208 140-450 10^3/uL Mean Platelet Volume 10.0 6.9-10.8 fL Neutrophils (%) (Auto) 87.1 H 37.0-80.0 % Lymphocytes (%) (Auto) 7.3 L 10.0-50.0 % Monocytes (%) (Auto) 4.7 0.0-12.0 % Eosinophils (%) (Auto) 0.0 0.0-7.0 % Basophils (%) (Auto) 0.9 0.0-2.0 % Neutrophils # (Auto) 15.5 H 1.6-8.6 10 ^3/uL Lymphocytes # (Auto) 1.3 0.4-5.4 10 ^3/uL Monocytes # (Auto) 0.8 0-1.3 10 ^3/uL Eosinophils # (Auto) 0 0-0.8 10 ^3/uL Basophils # (Auto) 0.2 0-0.2 10 ^3/uL Nucleated Red Blood Cells 0.0 % Triglycerides Level 140 < 150 mg/dL Cholesterol Level 112 < 200 mg/dL LDL Cholesterol 53 < 100 mg/dL HDL Cholesterol 33 L 40-59 mg/dL Thyroid Stimulating Hormone (TSH) 3.04 0.55-4.78 uIU/mL D-Dimer, Quantitative 1.38 H 0.0-0.49 mg/L FEU Sodium Level 138 136-145 mmol/L Potassium Level 4.5 3.5-5.1 mmol/L Chloride Level 110 H 98-107 mmol/L Carbon Dioxide Level 15 L 20-31 mmol/L Anion Gap 13 5-15 Blood Urea Nitrogen 35 H 9-23 mg/dL Creatinine 2.38 H 0.550-1.02 mg/dL Glomerular Filtration Rate Calc 21 >90 mL/min BUN/Creatinine Ratio 14.7 10.0-20.0 Serum Glucose 241 H 74-106 mg/dL Lactic Acid Level 1.3 0.4-2.0 mmol/L Calcium Level 9.2 8.7-10.4 mg/dL Magnesium Level 1.4 L 1.6-2.6 mg/dL Total Bilirubin 0.6 0.2-1.0 mg/dL Aspartate Amino Transferase (AST) 18 13-40 U/L Alanine Aminotransferase (ALT) 13 7-40 U/L Alkaline Phosphatase 89 46-116 U/L Total Protein 7.3 5.7-8.2 g/dL Albumin 4.0 3.2-4.8 g/dL Lipase 79 H 12-53 U/L Salicylates Level < 3.0 -30 mg/dL Acetaminophen Level < 2.0 L 10.0-20.0 UG/ML Plasma/Serum Blood Alcohol 6.4 <10 mg/dL Urine Color Light-yellow Yellow Urine Clarity Turbid H Clear Urine pH 6.5 5.0-9.0 Urine Specific [place] 1.014 1.001-1.035 Urine Protein 3+ H Negative Urine Ketones Negative Negative Urine Blood 1+ H Negative /uL Urine Nitrite Negative Negative Urine Bilirubin Negative Negative Urine Urobilinogen Normal Negative mg/dL Urine Leukocyte Esterase 2+ Negative /uL Urine RBC 19 0 - 4 /hpf Urine WBC Clumps Present None Seen /hpf Urine Microscopic WBC 117 H 0-5 /HPF Urine Squamous Epithelial Cells Few <5 /hpf Urine Bacteria Mod H None Seen /hpf Urine Glucose 1+ H Normal mg/dL Urine Opiates Screen Neg NEGATIVE Urine Fentanyl Screen Neg NEGATIVE Urine Barbiturates Screen Neg NEGATIVE Urine Phencyclidine Screen Neg NEGATIVE Urine Amphetamines Screen Neg NEGATIVE Urine Benzodiazepines Screen Neg NEGATIVE Urine Cocaine Screen Neg NEGATIVE Urine Cannabinoids Screen Pos NEGATIVE Assessment NSTEMI Rule out structural heart disease Hypertension Dyslipidemia Sepsis secondary to pneumonia and urinary tract infection Chronic kidney disease Type 2 diabetes mellitus, uncontrolled (Hgb A1c 7.8%) Morbid obesity Plan/Recommendation We will continue with the following plan/recommendations (Dr. Lloyd): Case reviewed and discussed with . We will proceed with obtaining a transthoracic echocardiogram to evaluate cardiac function. The patient's twelve lead electrocardiogram does not show any significant ST segment changes. Elevated troponin level possibly secondary to sepsis (NSTEMI type 2), but type 1 can not be fully excluded at this time. The patient with underlying sepsis pneumonia and urinary tract infection should be treated with antibiotics as per primary care team. If patient begins to develop cardiac symptoms, has abnormal wall motion abnormalities on echocardiogram, or has new onset ST segment changes on twelve lead electrocardiogram, we will consider ischemic workup. Continue with close cardiac surveillance and notify Cardiology for any ECG changes. Thank you for allowing us to care for this patient. Please call with any questions or concerns. Critical care time spent: 42 minutes This medical document was created using an electronic medical record system with voice recognition software and computerized dictation system. Although this document has been carefully reviewed, there might still be some phonetic and typographical errors. Occasional wrong-word or ``sound-alike substitutions may have occurred due to the inherent limitations of voice recognition software. These areas are purely typographical due to imperfections of the software programs and do not reflect any compromise in the patient's medical care. Please read the chart carefully and recognize, using context, where these substitutions have occurred. Plan discussed with: Patient, Spouse NYHA Physical activity limitations: NA Date of Service: Dec 27, 2024 Billing Provider: MUSA RAMEY Cardiology Common Codes: 16679-YCAVRYG INP/OBS CARE (High) Cardiology Consultation Codes: 97509-QBOVGAHVM CONSULT <45MIN MUSA RAMEY Dec 27, 2024 13:03
--- NOTE | 2024-12-27 13:13 | ECG ---
[facility] Test Date: 2024-12-27 Test Time: 12:15:33 Pat Name: JOÃO HEATON Department: Room: 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
--- NOTE | 2024-12-27 13:34 | DVHINCON2 ---
Date of service: Dec 27, 2024 Referring Physician gama Reason for Consultation flavia History of Present Illness 69 years old female with past medical history of Chronic kidney disease four, diabetes, hypertension, obesity, presented with chief complaints of altered mental status,, patient tells me she was sitting and leaning to the side and was sleepy after she woke up she was in emergency room she denies any urinary compl aints,, she tells me she took Ozempic and ended up having pancreatitis and renal failure in August of last year prior to that she says her renal function was okay Past Medical History As per HPI Allergies: Coded Allergies: NO KNOWN ALLERGIES (Unverified , 12/26/24) Home Meds Reported Medications Insulin Glargine (Insulin Glargine) 100 Unit/Ml Gina, UNIT SC UD for 88 Days, #15 12/27/24 Pregabalin (Pregabalin) 200 Mg Cap, 1 CAP PO DAILY for 100 Days, #100 12/27/24 Loratadine (CLARITIN TABLET) 10 Mg Tb, 1 TAB PO DAILY for 100 Days, #100 12/27/24 Atorvastatin Calcium (ATORVASTATIN CALCIUM) 40 Mg Tab, 1 TAB PO DAILY for 100 Days, #100 12/27/24 Cholecalciferol (Vitamin D-3 Super Strengt) 2,000 Unit Tab, 1 TAB PO DAILY for 100 Days, #100 12/27/24 Docusate Sodium (Docusate Sodium) 250 Mg Cap, 1 PO DAILY for 100 Days, #100 12/27/24 Glipizide (Glipizide) 5 Mg Tab, 1 TAB PO DAILY for 100 Days, #100 12/27/24 Levothyroxine Sodium (Levothyroxine Sodium) 25 Mcg Tab, 1 TAB PO DAILY for 30 Days, #30 12/27/24 Current Medications Current Medications Medications (Trade) Dose Ordered Sig/Ayaan Route PRN Reason Start Time Stop Time Status Last Admin Heparin Sodium/ Dextrose 250 ml @ 10 mls/hr Q24H IV 12/27/24 02:30 12/27/24 11:26 DC 12/27/24 03:00 Ceftriaxone Sodium 50 ml @ 100 mls/hr Q24H IV 12/27/24 21:00 12/27/24 11:08 DC Azithromycin 250 ml @ 125 mls/hr Q24H IV 12/27/24 21:00 12/27/24 11:08 DC Magnesium Sulfate/ Dextrose 100 ml @ 100 mls/hr Q1H IV 12/27/24 01:00 12/27/24 02:59 DC 12/27/24 02:00 Diagnostic Test (Pha) (Accu-Chek Comfort Curve T) 1 strip Q6HR 12/27/24 06:00 12/27/24 11:41 Insulin Human Regular (InsuLIN R) Q6HR SC 12/27/24 06:00 12/27/24 06:29 Dextrose 50 ml UD PRN IV Blood Sugar LESS THAN 60 12/27/24 01:00 Acetaminophen/ Hydrocodone Bitart ([place] 5/325MG Tab) 1 tab Q4HP PRN PO MODERATE PAIN (4-6 PAIN SCALE) 12/27/24 01:00 Ondansetron HCl (Zofran) 4 mg Q4HP PRN IV NAUSEA / VOMITING 12/27/24 01:00 Acetaminophen (Tylenol Tablet) 650 mg Q6HP PRN PO PAIN SCALE 1-3 OR TEMP>100.4 12/27/24 01:00 Nitroglycerin (Ntrostat Sublingual) 0.4 mg Q5MINP PRN SL FOR CHEST PAIN 12/27/24 01:00 12/27/24 12:25 Morphine Sulfate 2 mg Q30M PRN IV FOR CHEST PAIN 12/27/24 01:00 Meropenem 50 ml @ 17 mls/hr Q12HR IV 12/27/24 22:00 Heparin Sodium/ Dextrose 250 ml @ 13 mls/hr [id number] IV 12/27/24 11:30 12/27/24 12:30 Review of Systems As documented in HPI H&P Exam Vital Signs/I&O Vital Sign Date Time Temp Pulse Resp B/P (MAP) Pulse Ox O2 Delivery O2 Flow Rate FiO2 12/27/24 12:25 104/66 12/27/24 09:00 98.1 70 16 97 98.1 12/27/24 07:55 Nasal Cannula* 3 32 Intake and Output 12/26/24 12/27/24 19:00 07:00 Intake Total 1510 ml Balance 1510 ml Intake Oral 0 ml IV Total 1510 ml # Voids 2 Physical Exam General-not in any distress HEENT-normocephalic, no icterus, no pallor, neck supple Respiratory-fair air entry bilateral, no rhonchi, no wheeze [id number] heard, no murmurs appreciated Abdominal-soft, nontender, nondistended Musculoskeletal-no pedal edema, no calf tenderness Genitourinary-deferred Neuro-awake alert oriented x3, Psychiatric-not agitated, cooperative, Labs/Diagnostic Data Labs/Diagnostic Data Laboratory Tests Test 12/27/24 11:53 12/27/24 11:30 12/27/24 11:04 12/27/24 10:53 Range/Units Troponin I High Sensitivity 2005 *H 2137 *H </=34 ng/L POC Glucose 158 H 70-106 mg/dl Hemoglobin A1c 7.8 H <5.7 % A1C Test 12/27/24 09:57 12/27/24 06:24 12/27/24 01:05 12/26/24 23:32 Range/Units Prothrombin Time 11.2 11.2 9.3-11.8 sec Prothrombin Time INR 1.06 1.06 0.9-1.15 Activated Partial Thromboplast Time 29.8 28.1 24.5-34.5 SEC Troponin I High Sensitivity 0 *H 1068 *H </=34 ng/L POC Glucose 194 H 70-106 mg/dl White Blood Count 17.8 H 4.4-10.8 10^3/uL Red Blood Count 3.54 L 4.0-5.20 10^6/uL Hemoglobin 11.1 L 12.2-16.2 g/dL Hematocrit 32.9 #L 36.0-46.0 % Mean Corpuscular Volume 92.9 80.0-100.0 fL Mean Corpuscular Hemoglobin 31.3 28.0-32.0 pg Mean Corpuscular Hemoglobin Concent 33.6 32.0-36.0 g/dL Red Cell Distribution Width 13.4 11.8-14.3 % Platelet Count 208 140-450 10^3/uL Mean Platelet Volume 10.0 6.9-10.8 fL Neutrophils (%) (Auto) 87.1 H 37.0-80.0 % Lymphocytes (%) (Auto) 7.3 L 10.0-50.0 % Monocytes (%) (Auto) 4.7 0.0-12.0 % Eosinophils (%) (Auto) 0.0 0.0-7.0 % Basophils (%) (Auto) 0.9 0.0-2.0 % Neutrophils # (Auto) 15.5 H 1.6-8.6 10 ^3/uL Lymphocytes # (Auto) 1.3 0.4-5.4 10 ^3/uL Monocytes # (Auto) 0.8 0-1.3 10 ^3/uL Eosinophils # (Auto) 0 0-0.8 10 ^3/uL Basophils # (Auto) 0.2 0-0.2 10 ^3/uL Nucleated Red Blood Cells 0.0 % Triglycerides Level 140 < 150 mg/dL Cholesterol Level 112 < 200 mg/dL LDL Cholesterol 53 < 100 mg/dL HDL Cholesterol 33 L 40-59 mg/dL Thyroid Stimulating Hormone (TSH) 3.04 0.55-4.78 uIU/mL D-Dimer, Quantitative 1.38 H 0.0-0.49 mg/L FEU Test 12/26/24 21:00 12/26/24 20:13 12/26/24 19:48 Range/Units Troponin I High Sensitivity 435 *H 284 *H </=34 ng/L White Blood Count 16.5 H 4.4-10.8 10^3/uL Red Blood Count 3.92 L 4.0-5.20 10^6/uL Hemoglobin 12.2 12.2-16.2 g/dL Hematocrit 36.6 36.0-46.0 % Mean Corpuscular Volume 93.4 80.0-100.0 fL Mean Corpuscular Hemoglobin 31.2 28.0-32.0 pg Mean Corpuscular Hemoglobin Concent 33.4 32.0-36.0 g/dL Red Cell Distribution Width 13.5 11.8-14.3 % Platelet Count 193 140-450 10^3/uL Mean Platelet Volume 10.1 6.9-10.8 fL Neutrophils (%) (Auto) 92.1 H 37.0-80.0 % Lymphocytes (%) (Auto) 3.5 L 10.0-50.0 % Monocytes (%) (Auto) 3.7 0.0-12.0 % Eosinophils (%) (Auto) 0.3 0.0-7.0 % Basophils (%) (Auto) 0.4 0.0-2.0 % Neutrophils # (Auto) 15.2 H 1.6-8.6 10 ^3/uL Lymphocytes # (Auto) 0.6 0.4-5.4 10 ^3/uL Monocytes # (Auto) 0.6 0-1.3 10 ^3/uL Eosinophils # (Auto) 0.1 0-0.8 10 ^3/uL Basophils # (Auto) 0.1 0-0.2 10 ^3/uL Nucleated Red Blood Cells 0.0 % Sodium Level 138 136-145 mmol/L Potassium Level 4.5 3.5-5.1 mmol/L Chloride Level 110 H 98-107 mmol/L Carbon Dioxide Level 15 L 20-31 mmol/L Anion Gap 13 5-15 Blood Urea Nitrogen 35 H 9-23 mg/dL Creatinine 2.38 H 0.550-1.02 mg/dL Glomerular Filtration Rate Calc 21 >90 mL/min BUN/Creatinine Ratio 14.7 10.0-20.0 Serum Glucose 241 H 74-106 mg/dL Lactic Acid Level 1.3 0.4-2.0 mmol/L Calcium Level 9.2 8.7-10.4 mg/dL Magnesium Level 1.4 L 1.6-2.6 mg/dL Total Bilirubin 0.6 0.2-1.0 mg/dL Aspartate Amino Transferase (AST) 18 13-40 U/L Alanine Aminotransferase (ALT) 13 7-40 U/L Alkaline Phosphatase 89 46-116 U/L Total Protein 7.3 5.7-8.2 g/dL Albumin 4.0 3.2-4.8 g/dL Lipase 79 H 12-53 U/L Salicylates Level < 3.0 -30 mg/dL Acetaminophen Level < 2.0 L 10.0-20.0 UG/ML Plasma/Serum Blood Alcohol 6.4 <10 mg/dL Urine Color Light-yellow Yellow Urine Clarity Turbid H Clear Urine pH 6.5 5.0-9.0 Urine Specific [place] 1.014 1.001-1.035 Urine Protein 3+ H Negative Urine Ketones Negative Negative Urine Blood 1+ H Negative /uL Urine Nitrite Negative Negative Urine Bilirubin Negative Negative Urine Urobilinogen Normal Negative mg/dL Urine Leukocyte Esterase 2+ Negative /uL Urine RBC 19 0 - 4 /hpf Urine WBC Clumps Present None Seen /hpf Urine Microscopic WBC 117 H 0-5 /HPF Urine Squamous Epithelial Cells Few <5 /hpf Urine Bacteria Mod H None Seen /hpf Urine Glucose 1+ H Normal mg/dL Urine Opiates Screen Neg NEGATIVE Urine Fentanyl Screen Neg NEGATIVE Urine Barbiturates Screen Neg NEGATIVE Urine Phencyclidine Screen Neg NEGATIVE Urine Amphetamines Screen Neg NEGATIVE Urine Benzodiazepines Screen Neg NEGATIVE Urine Cocaine Screen Neg NEGATIVE Urine Cannabinoids Screen Pos NEGATIVE Assessment Acute kidney injury on Chronic kidney disease four--hemodynamic mediated unkno wn baseline Sepsis NSTEMI Metabolic acidosis History of pancreatitis secondary to Ozempic use Uncontrolled diabetes Acute hypoxic respiratory failure Recommendations Bicarb drip for 1 L Patient currently on heparin drip for NSTEMI Cardiology eval Kidney ultrasound unremarkable Urine workup as ordered Plan discussed with: Patient DELMY AYALA MD Dec 27, 2024 13:34
--- NOTE | 2024-12-27 15:21 | DVH ---
EXAM: NM NM VQ SCAN HISTORY: PULMONARY EMBOLISM COMPARISON: None TECHNIQUE: 4.3 mCi of Tc99m MAA were utilized for the perfusion portion of the study. FINDINGS: Perfusion images show homogeneous uptake of the radiotracer in both lungs without perfusion defects. IMPRESSION: 1. Normal VQ scan. Very low probability for pulmonary embolism.
[2024-12-27] MEDS: SODIUM BICARB 50mEq/50ml Vial 75 ML in SOD CHL 0.45% 1,000 ML IV ONE (16:12)
--- NOTE | 2024-12-27 17:03 | DVHSR ---
APPROVED REPORT EXAM: LIMITED Two-dimensional and M-mode echocardiogram with Doppler and color Doppler. Blood Pressure: 110/71 mmHg INDICATION Chest Pain RISK FACTORS Obesity: Height: 5'5, Weight: 224 DIMENSIONS LVDd (3.8-5.7cm)LA (2D)4.9 (1.9-4.0cm)Aortic Root3.3 (2.0-3.7cm) LVDs (2.5-4.0cm)LA (MM) (1.9-4.0cm)Aortic Cusp Exc1.7 (1.5-2.0cm) EF (%) 45.0 (55-70%)Rt. Atrium4.0 (1.9-4.0cm)Asc. Aorta cm Mitral Valve MitralMitral Stenosis E wave1.17m/sMV Mean GR.3mmHg A wave1.07m/sMV Peak GR.105mmHg E/A ratio1.12D MVAcm2 DECEL [id number] 1/2 Timems Aortic Valve Aortic ValveAortic Stenosis V10.79m/Shahrzad Mean GR.mmHg V20.94m/Shahrzad Peak GR.4mmHg LVOT Diameter2.0 (1.8-2.4cm)Doppler AVA2.64cm2 Pulmonic Valve V20.73m/s Other Information Quality : LimitedRhythm : Technically limited study due to body habitus.patient position. Conclusion Technically difficult study. Difficult acoustic windows. Left atrial enlargement with concentric LVH. Moderate mitral annular calcification the base of the posterior mitral leaflet. The aortic valve is structurally normal. The pulmonic and tricuspid are normal. Left ventricular systolic performance is diminished. EF is approximately 40% with global hypokinesis . RV function he has moderately diminished. Mild mitral insufficiency. Moderate tricuspid regurgitation. Small pericardial effusion not hemodynamically significant. No intracardiac masses thrombi or vegetations discernible. Anterior pericardial fat pad noted.
[2024-12-27] MEDS: HYDROcodone-ACET 5/325MG TAB PO PRN (17:26)
[2024-12-27 18:35] LABS: INR 1.07 (0.9-1.15); Partial Thromboplastin Time 50.3 SEC (24.5-34.5); Prothrombin Time 11.3 sec (9.3-11.8)
[2024-12-27] MEDS ORDERED: AZITHROMYCIN 500MG/ 250ML 250 ML IV SCH (21:00)
[2024-12-27] MEDS ORDERED: cefTRIAXone 1GM/50ML D5W 50 ML IV SCH (21:00)
[2024-12-27 21:04] LABS: Creatinine, Urine 130.16 mg/dL (30.0-125.0)
[2024-12-27 21:11] LABS: Protein, Urine 725.8 mg/dL (1-14)
--- NOTE | 2024-12-27 21:34 | ECG ---
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
--- NOTE | 2024-12-27 21:34 | ECG ---
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
[2024-12-27] MEDS: MEROPENEM 500MG IVPB 50 ML IV SCH (22:39)
[2024-12-28] VITALS (8 sets, daily range): BP systolic 125–157; BP diastolic 46–71; PULSE 55–82; RESP 17–18; TEMP 97.6–98.6; O2SAT 93–100
[2024-12-28 07:27] LABS: Potassium 4.4 mmol/L (3.5-5.1); Sodium 140 mmol/L (136-145)
[2024-12-28 07:28] LABS: Anion Gap 7 (5-15); Carbon Dioxide 23 mmol/L (20-31)
[2024-12-28 07:30] LABS: Calcium 8.6 mg/dL (8.7-10.4); Chloride 110 mmol/L (98-107)
[2024-12-28 07:33] LABS: BUN/Creatinine Ratio 14.3 (10.0-20.0); Basophils # (auto) 0.1 10 ^3/uL (0-0.2); Basophils % (auto) 1.2 % (0.0-2.0); Blood Urea Nitrogen 40 mg/dL (9-23); Eosinophils # (auto) 0.2 10 ^3/uL (0-0.8); Eosinophils % (auto) 2.5 % (0.0-7.0); Glucose 203 mg/dL (74-106); Hematocrit 31.4 % (36.0-46.0); Hemoglobin 10.8 g/dL (12.2-16.2); Lymphocytes # (auto) 1.7 10 ^3/uL (0.4-5.4); Lymphocytes % (auto) 20.1 % (10.0-50.0); Mean Corpuscular Hemoglobin 32.1 pg (28.0-32.0); Mean Corpuscular Hgb Conc. 34.3 g/dL (32.0-36.0); Mean Corpuscular Volume 93.6 fL (80.0-100.0); Monocytes # (auto) 0.5 10 ^3/uL (0-1.3); Monocytes % (auto) 5.8 % (0.0-12.0); Neutrophils # (auto) 6.1 10 ^3/uL (1.6-8.6); Neutrophils % (auto) 70.4 % (37.0-80.0); Platelet Count (auto) 152 10^3/uL (140-450); Red Blood Cells 3.36 10^6/uL (4.0-5.20); Red Cell Distribution Width 13.6 % (11.8-14.3); White Blood Cell 8.7 10^3/uL (4.4-10.8)
[2024-12-28 07:38] LABS: INR 1.05 (0.9-1.15); Partial Thromboplastin Time 47.7 SEC (24.5-34.5); Prothrombin Time 11.1 sec (9.3-11.8)
--- NOTE | 2024-12-28 08:54 | CONS ---
Pharmacy Clinical Information: HEPARIN DRIP RATE INCREASED TO 1500 UNITS/HR PER APTT OF 47.7 (SUB-THERAPEUTIC) NEXT APTT DRAW SCHEDULED FOR 1500 PER RX PROTOCOL NUBIA GRIFFITH PHARMACIST Dec 28, 2024 08:54
[2024-12-28] MEDS: HEPARIN DRIP/D5W 100UNITS/ML 250 ML IV SCH (09:27)
--- NOTE | 2024-12-28 14:59 | DVHPN2 ---
Progress Note Date Seen: Dec 28, 2024 Medical Necessity Reason Pt with a Central, PICC or Fol: No Subjective Patient reports: No new complaints, Feels better Review of Systems: Deferred Objective vital signs Vital Sign Date Time Temp Pulse Resp B/P (MAP) Pulse Ox O2 Delivery O2 Flow Rate FiO2 12/28/24 13:00 97.6 60 18 146/57 (86) 98 97.6 12/28/24 07:38 Nasal Cannula* 3 32 Total Intake and Output 12/27/24 12/27/24 12/28/24 15:00 23:00 07:00 Intake Total 240 ml 1400 ml Balance 240 ml 1400 ml medications Current Medications Medications Dose Ordered Sig/Ayaan Route Start Time Stop Time Status Last Admin Dose Admin Diagnostic Test (Pha) 1 strip Q6HR 12/27/24 06:00 12/28/24 11:08 1 STRIP Insulin Human Regular Q6HR SC 12/27/24 06:00 12/28/24 11:08 4 UNITS Dextrose 50 ml UD PRN IV 12/27/24 01:00 Acetaminophen/ Hydrocodone Bitart 1 tab Q4HP PRN PO 12/27/24 01:00 12/28/24 11:15 1 TAB Ondansetron HCl 4 mg Q4HP PRN IV 12/27/24 01:00 Acetaminophen 650 mg Q6HP PRN PO 12/27/24 01:00 Nitroglycerin 0.4 mg Q5MINP PRN SL 12/27/24 01:00 12/27/24 12:25 0.4 MG Morphine Sulfate 2 mg Q30M PRN IV 12/27/24 01:00 Meropenem 50 ml @ 17 mls/hr Q12HR IV 12/27/24 22:00 12/28/24 09:43 17 MLS/HR Heparin Sodium/ Dextrose 250 ml @ 15 mls/hr [id number] IV 12/28/24 09:00 12/28/24 09:27 15 MLS/HR Examination: GENERAL:Normal, HEENT:Normal, NECK:Normal, LUNGS:Abnormal, CVS:Normal, ABDOMEN:Normal, MSK:Normal, SKIN:Normal, NEURO:Normal, :Normal laboratory and microbiology Laboratory Tests 12/28/24 06:53 Test 12/28/24 06:53 Range/Units Serum Glucose 203 H 74-106 mg/dL Microbiology Date/Time Source Procedure Growth Status 12/26/24 20:16 Blood Blood Culture - Preliminary NO GROWTH AFTER 24 HOURS OF INCUBATION. 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
[2024-12-28 15:19] LABS: INR 1.04 (0.9-1.15); Partial Thromboplastin Time 66.3 SEC (24.5-34.5)
--- NOTE | 2024-12-28 16:10 | CONS ---
Pharmacy Clinical Information: CONTINUE HEPARIN DRIP AT RATE 1500 UNITS/HR = 15 ML/HR PER THERAPEUTIC APTT OF 66.3. NEXT APTT DRAW SCHEDULED FOR 2100 PER RX PROTOCOL. NUBIA GRIFFITH PHARMACIST Dec 28, 2024 16:10
--- NOTE | 2024-12-28 16:12 | DVHPN2 ---
Consult Progress Note Subjective Other Systems: The patient remains in normal sinus rhythm on continuous potline monitor. Denies any cardiac symptoms at time of assessment. Objective vital signs Vital Sign Date Time Temp Pulse Resp B/P (MAP) Pulse Ox O2 Delivery O2 Flow Rate FiO2 12/28/24 13:00 97.6 60 18 146/57 (86) 98 97.6 12/28/24 07:38 Nasal Cannula* 3 32 Total Intake and Output 12/27/24 12/27/24 12/28/24 15:00 23:00 07:00 Intake Total 240 ml 1400 ml Balance 240 ml 1400 ml medications Current Medications Medications Dose Ordered Sig/Ayaan Route Start Time Stop Time Status Last Admin Dose Admin Diagnostic Test (Pha) 1 strip Q6HR 12/27/24 06:00 12/28/24 11:08 1 STRIP Insulin Human Regular Q6HR SC 12/27/24 06:00 12/28/24 11:08 4 UNITS Dextrose 50 ml UD PRN IV 12/27/24 01:00 Acetaminophen/ Hydrocodone Bitart 1 tab Q4HP PRN PO 12/27/24 01:00 12/28/24 11:15 1 TAB Ondansetron HCl 4 mg Q4HP PRN IV 12/27/24 01:00 Acetaminophen 650 mg Q6HP PRN PO 12/27/24 01:00 Nitroglycerin 0.4 mg Q5MINP PRN SL 12/27/24 01:00 12/27/24 12:25 0.4 MG Morphine Sulfate 2 mg Q30M PRN IV 12/27/24 01:00 Meropenem 50 ml @ 17 mls/hr Q12HR IV 12/27/24 22:00 12/28/24 09:43 17 MLS/HR Heparin Sodium/ Dextrose 250 ml @ 15 mls/hr [id number] IV 12/28/24 09:00 12/28/24 09:27 15 MLS/HR Furosemide 40 mg DAILY IV 12/29/24 10:00 Examination: GENERAL:Normal, LUNGS:Normal, CVS:Normal, NEURO:Normal laboratory and microbiology Laboratory Tests 12/28/24 06:53 Test 12/28/24 06:53 Range/Units Serum Glucose 203 H 74-106 mg/dL Problem List/Assessment/Plan Problem List/Assessment/Plan NSTEMI Acute on chronic HFrEF, NYHA class III Hypertension Dyslipidemia Moderate tricuspid regurgitation Sepsis secondary to pneumonia and urinary tract infection Chronic kidney disease Type 2 diabetes mellitus, uncontrolled (Hgb A1c 7.8%) Morbid obesity Plan/Recommendation (Dr. Lloyd): Case reviewed and discussed with . Transthoracic echocardiogram reveals EF 40% with a global hypokinesis. The patient's twelve lead electrocardiogram does not show any significant ST segment changes. Elevated troponin level possibly secondary to sepsis (NSTEMI type 2), but type 1 can not be fully excluded at this time. The patient with underlying sepsis pneumonia and urinary tract infection should be treated with antibiotics as per primary care team. Today, the patient denies any cardiac symptoms. Had a long conversation with the patient regarding echocardiogram results as well as elevated troponin level and the possibility of coronary artery disease and ischemic workup. At this time, the patient's renal function is not optimal. Discussed with the patient that we can offer her a coronary angiogram, but she is at risk for contrast induced nephropathy. The patient verbalized understanding at this time and states that she would like to hold off on any invasive cardiac procedures. Continue to treat the patient medically for the time being. Continue with close cardiac surveillance and notify Cardiology for any ECG changes. Further recommendations per clinical course and progression. Thank you for allowing us to care for this patient. Please call with any questions or concerns. This medical document was created using an electronic medical record system with voice recognition software and computerized dictation system. Although this document has been carefully reviewed, there might still be some phonetic and typographical errors. Occasional wrong-word or ``sound-alike substitutions may have occurred due to the inherent limitations of voice recognition software. These areas are purely typographical due to imperfections of the software programs and do not reflect any compromise in the patient's medical care. Please read the chart carefully and recognize, using context, where these substitutions have occurred. Plan discussed with: Patient Date of Service: Dec 28, 2024 Billing Provider: MUSA RAMEY Common Visit Codes: [id number] INP/OBS CARE(HIGH) MUSA RAMEY Dec 28, 2024 16:12
[2024-12-28] MEDS: FUROSEMIDE 40 MG/4 ML VIAL IV ONE (17:10)
--- NOTE | 2024-12-28 17:42 | DVHPN2 ---
Subjective Patient reports that her shortness of breath has improved. Reviewed: Care Plan, H&P, Labs, Medications Changes from previous H/P or p: Changes General: Per HPI Objective Vitals Vital Signs Date Time Temp Pulse Resp B/P (MAP) Pulse Ox O2 Delivery O2 Flow Rate FiO2 12/28/24 17:10 134/59 12/28/24 17:00 97.8 55 18 100 97.8 12/28/24 07:38 Nasal Cannula* 3 32 Intake/Output Intake and Output 12/28/24 07:00 Intake Total 1640 ml Balance 1640 ml Intake Oral 840 ml IV Total 800 ml # Voids 4 # Bowel Movements 1 General Appearance: Alert, Oriented X3, Cooperative, mild distress HEENT: Atraumatic, PERRLA Lungs: Clear to auscultation, Normal air movement Cardiovascular: Normal S1, Normal S2 Genitourinary: No Apparent Abnormalities Musculoskeletal: Normal sensory function, Normal motor function Extremities: Other (Positive Homans sign to left lower extremity) Neuro: Normal speech Skin: Dry, Intact Psych/Mental Status: Mental status NL, Mood NL Medications Current Medications Medications Dose Ordered Sig/Ayaan Route Start Time Stop Time Status Last Admin Dose Admin Diagnostic Test (Pha) 1 strip Q6HR 12/27/24 06:00 12/28/24 17:11 1 STRIP Insulin Human Regular Q6HR SC 12/27/24 06:00 12/28/24 11:08 4 UNITS Dextrose 50 ml UD PRN IV 12/27/24 01:00 Acetaminophen/ Hydrocodone Bitart 1 tab Q4HP PRN PO 12/27/24 01:00 12/28/24 11:15 1 TAB Ondansetron HCl 4 mg Q4HP PRN IV 12/27/24 01:00 Acetaminophen 650 mg Q6HP PRN PO 12/27/24 01:00 Nitroglycerin 0.4 mg Q5MINP PRN SL 12/27/24 01:00 12/27/24 12:25 0.4 MG Morphine Sulfate 2 mg Q30M PRN IV 12/27/24 01:00 Meropenem 50 ml @ 17 mls/hr Q12HR IV 12/27/24 22:00 12/28/24 09:43 17 MLS/HR Furosemide 40 mg DAILY IV 12/29/24 10:00 Enoxaparin Sodium 100 mg DAILY SC 12/28/24 22:00 Laboratory Results Laboratory Tests 12/28/24 06:53 Chemistry Test 12/28/24 06:53 Calcium Level 8.6 mg/dL (8.7-10.4) L Coagulation Test 12/27/24 23:28 12/28/24 06:53 12/28/24 14:54 Activated Partial Thromboplast Time 66.5 SEC (24.5-34.5) H 47.7 SEC (24.5-34.5) H 66.3 SEC (24.5-34.5) H Prothrombin Time 11.1 sec (9.3-11.8) 11.0 sec (9.3-11.8) Prothrombin Time INR 1.05 (0.9-1.15) 1.04 (0.9-1.15) Urinalysis Test 12/26/24 19:48 12/27/24 20:20 Urine Color Light-yellow (Yellow) Urine Clarity Turbid (Clear) H Urine pH 6.5 (5.0-9.0) Urine Specific [place] 1.014 (1.001-1.035) Urine Protein 3+ (Negative) H Urine Ketones Negative (Negative) Urine Blood 1+ /uL (Negative) H Urine Nitrite Negative (Negative) Urine Bilirubin Negative (Negative) Urine Urobilinogen Normal mg/dL (Negative) Urine Leukocyte Esterase 2+ /uL (Negative) Urine RBC 19 /hpf (0 - 4) Urine WBC Clumps Present /hpf (None Seen) Urine Microscopic WBC 117 /HPF (0-5) H Urine Squamous Epithelial Cells Few /hpf (<5) Urine Bacteria Mod /hpf (None Seen) H Urine Glucose 1+ mg/dL (Normal) H Urine Creatinine 130.16 mg/dL (30.0-125.0) H Urine Sodium 62 mmol/L (40-220) Urine Total Protein 725.8 mg/dL (1-14) H Microbiology Microbiology Date/Time Source Procedure Growth Status 12/26/24 20:16 Blood Blood Culture - Preliminary NO GROWTH AFTER 24 HOURS OF INCUBATION. Resulted 12/26/24 19:48 Voided Urine Urine Culture - Preliminary Resulted Labs and/or images reviewed: Labs reviewed by me, Image(s) reviewed by me Assessment/Plan Assessment/Plan Impression: -metabolic encephalopathy secondary to sepsis -Sepsis, probably secondary to UTI and pneumonia -community-acquired pneumonia, probable Gram-positive/Gram-negative etiology -acute hypoxic respiratory failure -rule out PE, DVT -diabetes mellitus -acute kidney injury, vasomotor nephropathy -underlying CKD stage IIIB/four -obesity -deconditioning -NSTEMI ? type2, with serial elevation in troponin level. Rule out type 1 Plan: -V/Q scan negative for PE. DVT study negative. White blood cell count improving. -change antibiotic therapy to Meropenem to cover both community-acquired pneumonia and complicated cystitis -pruitt cultures -cardiology consultation: Recommendations reviewed -regular insulin sliding scale -nephrology consultation : Recommendations reviewed -stop heparin drip and transitioned to Lovenox -repeat urine culture -repeat labs in a.m. -long discussion made with the patient as well as has been who was bedside. All questions answered. -physical therapy consultation Patient continues to have severe dizziness with ambulation. Troponins slightly downtrending. Given patient's impaired renal function, we will continue to anticoagulate patient until troponin level continues to normalize. Patient probably has underlying CAD given her ejection fraction of 40%. Risk for worsening renal function given her CKD stage IIIB/four. Unstable to transfer to [facility]. This medical document was created using an electronic medical record system with [employer] dictation system. Although this document has been carefully reviewed, there may still be some phonetic and typographical errors. These areas are purely typographical due to imperfections of the software programs, and do not reflect any compromise in the patient's medical care. Plan discussed with: Patient, Other (RN) My Orders Orders - BELA WARNER NP Procedure Category Date Status Time Enoxaparin Sodium PHA 12/28/24 In Process (Lovenox) 22:00 Chest Xray 1 View XY 12/29/24 Logged 04:00 Urine Bacterial OVIDIO 12/28/24 Logged Culture 17:13 Date of Service: Dec 28, 2024 Billing Provider: BELA WARNER NP Common Visit Codes: [id number] INP/OBS CARE(HIGH) BELA WARNER NP Dec 28, 2024 17:42
[2024-12-28] MEDS: ENOXAPARIN SOD 100 MG/1 ML SYRINGE SC SCH (21:43)
[2024-12-29] VITALS (8 sets, daily range): BP systolic 125–168; BP diastolic 57–78; PULSE 68–98; RESP 15–18; TEMP 97.4–98.3; O2SAT 92–98
[2024-12-29 07:19] LABS: Basophils # (auto) 0.1 10 ^3/uL (0-0.2); Basophils % (auto) 0.8 % (0.0-2.0); Eosinophils # (auto) 0.2 10 ^3/uL (0-0.8); Hemoglobin 10.6 g/dL (12.2-16.2); Lymphocytes # (auto) 1.8 10 ^3/uL (0.4-5.4); Lymphocytes % (auto) 24.2 % (10.0-50.0); Mean Corpuscular Hemoglobin 32.4 pg (28.0-32.0); Mean Corpuscular Hgb Conc. 35.1 g/dL (32.0-36.0); Mean Corpuscular Volume 92.3 fL (80.0-100.0); Monocytes # (auto) 0.5 10 ^3/uL (0-1.3); Monocytes % (auto) 6.4 % (0.0-12.0); Neutrophils # (auto) 4.9 10 ^3/uL (1.6-8.6); Neutrophils % (auto) 65.6 % (37.0-80.0); Platelet Count (auto) 172 10^3/uL (140-450); Red Blood Cells 3.26 10^6/uL (4.0-5.20); Red Cell Distribution Width 13.3 % (11.8-14.3); White Blood Cell 7.5 10^3/uL (4.4-10.8)
[2024-12-29 07:29] LABS: Chloride 106 mmol/L (98-107); Potassium 4.1 mmol/L (3.5-5.1); Sodium 139 mmol/L (136-145)
[2024-12-29 07:30] LABS: Anion Gap 9 (5-15); Carbon Dioxide 24 mmol/L (20-31)
[2024-12-29 07:31] LABS: Calcium 9.3 mg/dL (8.7-10.4)
[2024-12-29 07:36] LABS: BUN/Creatinine Ratio 13.4 (10.0-20.0)
[2024-12-29 07:38] LABS: Blood Urea Nitrogen 36 mg/dL (9-23); Glucose 187 mg/dL (74-106)
[2024-12-29] MEDS: FUROSEMIDE 40 MG/4 ML VIAL IV SCH (09:23)
--- NOTE | 2024-12-29 09:48 | DVH ---
EXAM: XY CHEST XRAY 1 VIEW HISTORY: pna COMPARISON: XY CHEST PORTABLE on DOS: 12/26/24 TECHNIQUE: Portable AP view of the chest was performed. FINDINGS: No pneumothorax or consolidative infiltrates. There is mild The central interstitial prominence. The heart is enlarged. The aortic arch is calcific. The central pulmonary arteries may be ectatic. There is a right shoulder arthroplasty, not fully imaged here. Left glenohumeral osteoarthritis. IMPRESSION: 1. Cardiomegaly with mild central interstitial prominence which may be due to reactive airways diseas e or mild CHF. 2. Atherosclerotic vascular disease and possible pulmonary arterial hypertension.
--- NOTE | 2024-12-29 12:22 | DVHPN2 ---
Consult Progress Note Subjective Patient reports: Feels better Review of Systems: CVS:Normal (Denies CP) Objective vital signs Vital Sign Date Time Temp Pulse Resp B/P (MAP) Pulse Ox O2 Delivery O2 Flow Rate FiO2 12/29/24 09:23 141/57 12/29/24 09:00 98.3 92 16 92 98.3 12/29/24 08:00 Nasal Cannula* 4 36 Total Intake and Output 12/28/24 12/28/24 12/29/24 15:00 23:00 07:00 Intake Total 50 ml 500 ml 800 ml Balance 50 ml 500 ml 800 ml medications Current Medications Medications Dose Ordered Sig/Ayaan Route Start Time Stop Time Status Last Admin Dose Admin Diagnostic Test (Pha) 1 strip Q6HR 12/27/24 06:00 12/29/24 12:11 1 STRIP Insulin Human Regular Q6HR SC 12/27/24 06:00 12/29/24 12:11 3 UNITS Dextrose 50 ml UD PRN IV 12/27/24 01:00 Acetaminophen/ Hydrocodone Bitart 1 tab Q4HP PRN PO 12/27/24 01:00 12/28/24 21:44 1 TAB Ondansetron HCl 4 mg Q4HP PRN IV 12/27/24 01:00 Acetaminophen 650 mg Q6HP PRN PO 12/27/24 01:00 Nitroglycerin 0.4 mg Q5MINP PRN SL 12/27/24 01:00 12/27/24 12:25 0.4 MG Morphine Sulfate 2 mg Q30M PRN IV 12/27/24 01:00 Meropenem 50 ml @ 17 mls/hr Q12HR IV 12/27/24 22:00 12/29/24 09:23 17 MLS/HR Furosemide 40 mg DAILY IV 12/29/24 10:00 12/29/24 09:23 40 MG Enoxaparin Sodium 100 mg DAILY SC 12/28/24 22:00 12/29/24 09:19 100 MG Examination: LUNGS:Abnormal (NC 4L), CVS:Normal (Telemetry reviewed, consistent with sinus rhythm at 89 beats per minute.) laboratory and microbiology Laboratory Tests 12/29/24 06:40 Test 12/29/24 06:40 Range/Units Serum Glucose 187 H 74-106 mg/dL Problem List/Assessment/Plan Problem List/Assessment/Plan Problem List/Assessment/Plan NSTEMI Acute on chronic HFrEF, NYHA class III Hypertension Dyslipidemia Moderate tricuspid regurgitation Sepsis secondary to pneumonia and urinary tract infection Chronic kidney disease Type 2 diabetes mellitus, uncontrolled (Hgb A1c 7.8%) Morbid obesity Plan/Recommendation (Dr. Lloyd): Case reviewed and discussed with . Echo showing EF 40% with a global hypokinesis. Likely type 2 VT. The patient with underlying sepsis pneumonia and urinary tract infection should be treated with antibiotics as per primary care team. Continue medical management at this time due to kidney function per patient wishes. Verbalizes understanding of risks. Creatinine 2.68 today. Outpatient follow up. Continue EGD MT, metoprolol 50 mg p.o. daily. Patient being diuresed with Lasix 40 mg IV daily, continue with 40 mg p.o. daily upon discharge. Demario/Arb not started due to kidney function, may start once kidney function stabilizes plan for outpatient. Continue to treat the patient medically for the time being. This medical document was created using an electronic medical record system with voice recognition software and computerized dictation system. Although this document has been carefully reviewed, there might still be some phonetic and typographical errors. Occasional wrong-word or ``sound-alike substitutions may have occurred due to the inherent limitations of voice recognition software. These areas are purely typographical due to imperfections of the software programs and do not reflect any compromise in the patient's medical care. Please read the chart carefully and recognize, using context, where these substitutions have occurred. Thank you for allowing me to participate in the management of this patient. The treatment plan was discussed with and agreed upon by patient/family including requesting consultants and ordering of imaging/procedures. Plan discussed with: Patient Date of Service: Dec 29, 2024 Billing Provider: ESTEFANI HDZ Common Visit Codes: [id number] INP/OBS CARE(HIGH) ESTEFANI HDZ Dec 29, 2024 12:22
[2024-12-29] MEDS: METOPROLOL SUCCINATE XL 50 MG TAB PO ONE (13:02)
--- NOTE | 2024-12-29 15:22 | DVHDS2 ---
Discharge Summary Date of Admission Dec 27, 2024 at 00:51 Date of Discharge: Dec 29, 2024 Admitting Diagnosis NSTEMI Labs/Diagnostic Data: Laboratory Results Test 12/29/24 06:40 12/29/24 05:49 12/28/24 14:54 12/27/24 20:20 White Blood Count 7.5 10^3/uL (4.4-10.8) Red Blood Count 3.26 10^6/uL (4.0-5.20) Hemoglobin 10.6 g/dL (12.2-16.2) Hematocrit 30.0 % (36.0-46.0) Mean Corpuscular Volume 92.3 fL (80.0-100.0) Mean Corpuscular Hemoglobin 32.4 pg (28.0-32.0) Mean Corpuscular Hemoglobin Concent 35.1 g/dL (32.0-36.0) Red Cell Distribution Width 13.3 % (11.8-14.3) Platelet Count 172 10^3/uL (140-450) Mean Platelet Volume 9.9 fL (6.9-10.8) Neutrophils (%) (Auto) 65.6 % (37.0-80.0) Lymphocytes (%) (Auto) 24.2 % (10.0-50.0) Monocytes (%) (Auto) 6.4 % (0.0-12.0) Eosinophils (%) (Auto) 3.0 % (0.0-7.0) Basophils (%) (Auto) 0.8 % (0.0-2.0) Neutrophils # (Auto) 4.9 10 ^3/uL (1.6-8.6) Lymphocytes # (Auto) 1.8 10 ^3/uL (0.4-5.4) Monocytes # (Auto) 0.5 10 ^3/uL (0-1.3) Eosinophils # (Auto) 0.2 10 ^3/uL (0-0.8) Basophils # (Auto) 0.1 10 ^3/uL (0-0.2) Nucleated Red Blood Cells 0.0 % Sodium Level 139 mmol/L (136-145) Potassium Level 4.1 mmol/L (3.5-5.1) Chloride Level 106 mmol/L (98-107) Carbon Dioxide Level 24 mmol/L (20-31) Anion Gap 9 (5-15) Blood Urea Nitrogen 36 mg/dL (9-23) Creatinine 2.68 mg/dL (0.550-1.02) Glomerular Filtration Rate Calc 18 mL/min (>90) BUN/Creatinine Ratio 13.4 (10.0-20.0) Serum Glucose 187 mg/dL (74-106) Calcium Level 9.3 mg/dL (8.7-10.4) POC Glucose 191 mg/dl (70-106) Prothrombin Time 11.0 sec (9.3-11.8) Prothrombin Time INR 1.04 (0.9-1.15) Activated Partial Thromboplast Time 66.3 SEC (24.5-34.5) Urine Creatinine 130.16 mg/dL (30.0-125.0) Urine Sodium 62 mmol/L (40-220) Urine Total Protein 725.8 mg/dL (1-14) Test 12/27/24 11:53 12/27/24 11:04 12/27/24 01:05 12/26/24 23:32 Troponin I High Sensitivity 2006 ng/L (</=34) Hemoglobin A1c 7.8 % A1C (<5.7) Triglycerides Level 140 mg/dL (< 150) Cholesterol Level 112 mg/dL (< 200) LDL Cholesterol 53 mg/dL (< 100) HDL Cholesterol 33 mg/dL (40-59) Thyroid Stimulating Hormone (TSH) 3.04 uIU/mL (0.55-4.78) D-Dimer, Quantitative 1.38 mg/L FEU (0.0-0.49) Test 12/26/24 20:13 12/26/24 19:48 Lactic Acid Level 1.3 mmol/L (0.4-2.0) Magnesium Level 1.4 mg/dL (1.6-2.6) Total Bilirubin 0.6 mg/dL (0.2-1.0) Aspartate Amino Transferase (AST) 18 U/L (13-40) Alanine Aminotransferase (ALT) 13 U/L (7-40) Alkaline Phosphatase 89 U/L (46-116) Total Protein 7.3 g/dL (5.7-8.2) Albumin 4.0 g/dL (3.2-4.8) Lipase 79 U/L (12-53) Salicylates Level < 3.0 mg/dL (-30) Acetaminophen Level < 2.0 UG/ML (10.0-20.0) Plasma/Serum Blood Alcohol 6.4 mg/dL (<10) Urine Color Light-yellow (Yellow) Urine Clarity Turbid (Clear) Urine pH 6.5 (5.0-9.0) Urine Specific [place] 1.014 (1.001-1.035) Urine Protein 3+ (Negative) Urine Ketones Negative (Negative) Urine Blood 1+ /uL (Negative) Urine Nitrite Negative (Negative) Urine Bilirubin Negative (Negative) Urine Urobilinogen Normal mg/dL (Negative) Urine Leukocyte Esterase 2+ /uL (Negative) Urine RBC 19 /hpf (0 - 4) Urine WBC Clumps Present /hpf (None Seen) Urine Microscopic WBC 117 /HPF (0-5) Urine Squamous Epithelial Cells Few /hpf (<5) Urine Bacteria Mod /hpf (None Seen) Urine Glucose 1+ mg/dL (Normal) Urine Opiates Screen Neg (NEGATIVE) Urine Fentanyl Screen Neg (NEGATIVE) Urine Barbiturates Screen Neg (NEGATIVE) Urine Phencyclidine Screen Neg (NEGATIVE) Urine Amphetamines Screen Neg (NEGATIVE) Urine Benzodiazepines Screen Neg (NEGATIVE) Urine Cocaine Screen Neg (NEGATIVE) Urine Cannabinoids Screen Pos (NEGATIVE) Other Laboratory Tests 12/29/24 06:40 Brief Hx & Hospital Course: History of Present Illness 70-year-old female presents for evaluation of altered mental status. Patient presented after has been noted patient becoming progressively more altered in the past couple of days. Patient is currently alert and oriented x3. Denies chest pain or shortness for breath. No abdominal pain or nausea. Course of hospitalization: Patient was found to have elevated troponin, dyspnea, complaints of left leg pain, as well as having encephalopathy. Discussion was made with the patient's who states that she has been very sedentary over the past several months, with recent altered mental status on the day of admission as well as chills, and shivering making her bed-bound several days prior to admission. Patient had DVT study which was negative for any thrombus, V/Q scan which was negative for PE, in addition to having an echocardiogram which revealed acute systolic heart failure with ejection fraction 40%. Cardiology consultation was obtained regarding NSTEMI type 1 versus two, with the patient having no symptoms of acute coronary syndrome at this time. Given the patient's poor renal function, recommendations are to treat the patient medically, for which she was placed on heparin drip, transitioned to Lovenox. Nephrology consultation was also obtained with recommendations implemented in the plan of care. Patient was now alert and oriented. She has been sitting on the side of the bed with physical therapy evaluation. Patient was tolerating oral intake. She was now stable to be transferred to [facility], but given patient requirement for further treatment of sepsis, patient should be transferred for inpatient services at this time. Patient was agreeable to the plan of care. All questions answered. Physical examination General: Alert and Oriented x3. No acute distress. Well-nourished. Obese Eyes: EOMI. Anicteric. HENT: Moist mucous membranes. Lungs: Clear to auscultation bilaterally. No accessory muscle use. Cardiovascular: Regular rate and rhythm. No murmur. No JVD. Abdomen: Soft, non-tender and non-distended. No palpable masses. Extremities: No edema. Non-tender. Skin: No rashes or lesions. Warm. Neurologic: No focal neurological deficits. CN II-XII grossly intact, but not individually tested. Psychiatric: Cooperative. Appropriate mood and affect. Total time spent with patient discussing and formulating plan of care: 35 minutes. This medical document was created using an electronic medical record system with [employer] dictation system. Although this document has been carefully reviewed, there may still be some phonetic and typographical errors. These areas are purely typographical due to imperfections of the software programs, and do not reflect any compromise in the patient's medical care. Consults/Reason for consult Cardiology: NSTEMI Nephrology: CKD stage IIIB/four Condition at Discharge: Guarded Final Diagnosis/Problems List Sepsis, NSTEMI, rule out type 1 Secondary diagnosis: -metabolic encephalopathy secondary to sepsis -Sepsis, probably secondary to UTI and pneumonia -community-acquired pneumonia, probable Gram-positive/Gram-negative etiology -acute hypoxic respiratory failure -rule out PE, DVT -diabetes mellitus -acute kidney injury, vasomotor nephropathy -underlying CKD stage IIIB/four -obesity -deconditioning -NSTEMI ? type2, with serial elevation in troponin level. Rule out type 1 Discharge Disposition: Acute Care Facility Discharge Instruct/Medications Diet: Consistent carbohydrate, Cardiac 2g Na,low cholest Activity: No Restrictions, As Tolerated Follow Up/Referral: Per accepting provider Medications: Refer to medication reconciliation form 36 Discharge Statement: "Patient was advised to return to the ER or call 911 if any headaches, dizziness, shortness of breath, chest pain, abdominal pain, bleeding, fevers, or worsening of medical condition. Patient was counseled about treatment plan, medications, possible side effects, patientverbalized understanding. All questions were answered to the best of my ability. This discharge took greater then 30 minutes in planning, reviewing documentation, counseling the patient, and discussing with other team members." ASSESSMENT ASSESSMENT Assessment Sepsis, NSTEMI, rule out type 1 Date of Service: Dec 29, 2024 Billing Provider: BELA WARNER NP Common Visit Codes: 06625-WHQ/OBS DISCH DAY >30min BELA WARNER NP Dec 29, 2024 15:22
--- NOTE | 2024-12-29 15:52 | DVHPN2 ---
Progress Note Date Seen: Dec 29, 2024 Medical Necessity Reason Pt with a Central, PICC or Fol: No Subjective Patient reports: No new complaints Review of Systems: Deferred Objective vital signs Vital Sign Date Time Temp Pulse Resp B/P (MAP) Pulse Ox O2 Delivery O2 Flow Rate FiO2 12/29/24 13:02 85 157/82 12/29/24 09:00 98.3 16 92 98.3 12/29/24 08:00 Nasal Cannula* 4 36 Total Intake and Output 12/28/24 12/28/24 12/29/24 15:00 23:00 07:00 Intake Total 50 ml 500 ml 800 ml Balance 50 ml 500 ml 800 ml medications Current Medications Medications Dose Ordered Sig/Ayaan Route Start Time Stop Time Status Last Admin Dose Admin Diagnostic Test (Pha) 1 strip Q6HR 12/27/24 06:00 12/29/24 12:11 1 STRIP Insulin Human Regular Q6HR SC 12/27/24 06:00 12/29/24 12:11 3 UNITS Dextrose 50 ml UD PRN IV 12/27/24 01:00 Acetaminophen/ Hydrocodone Bitart 1 tab Q4HP PRN PO 12/27/24 01:00 12/28/24 21:44 1 TAB Ondansetron HCl 4 mg Q4HP PRN IV 12/27/24 01:00 Acetaminophen 650 mg Q6HP PRN PO 12/27/24 01:00 Nitroglycerin 0.4 mg Q5MINP PRN SL 12/27/24 01:00 12/27/24 12:25 0.4 MG Morphine Sulfate 2 mg Q30M PRN IV 12/27/24 01:00 Meropenem 50 ml @ 17 mls/hr Q12HR IV 12/27/24 22:00 12/29/24 09:23 17 MLS/HR Furosemide 40 mg DAILY IV 12/29/24 10:00 12/29/24 09:23 40 MG Enoxaparin Sodium 100 mg DAILY SC 12/28/24 22:00 12/29/24 09:19 100 MG Metoprolol Succinate 50 mg DAILY PO 12/30/24 10:00 Examination: GENERAL:Normal, LUNGS:Abnormal, MSK:Normal, NEURO:Normal laboratory and microbiology Laboratory Tests 12/29/24 06:40 Test 12/29/24 06:40 Range/Units Serum Glucose 187 H 74-106 mg/dL Microbiology Date/Time Source Procedure Growth Status 12/28/24 18:00 Urine - Midstream Clean Catch Urine Culture - Preliminary Resulted 12/26/24 20:16 Blood Blood Culture - Preliminary NO GROWTH AFTER 48 HOURS OF INCUBATION. Resulted Problem List/Assessment/Plan Problem List/Assessment/Plan Acute kidney injury on Chronic kidney disease four--hemodynamic mediated unknown baseline Sepsis NSTEMI Metabolic acidosis History of pancreatitis secondary to Ozempic use Uncontrolled diabetes Acute hypoxic respiratory failure chfref Recommendations iv lasix --echo noted Kidney ultrasound unremarkable Urine workup as ordered possible [place] transfer Plan discussed with: Patient, Other DELMY AYALA MD Dec 29, 2024 15:52
[2024-12-29] MEDS: hydrALAZINE HCL 20 MG/ML VL IV ONE (18:16)
[2024-12-29] MEDS: ONDANSETRON HCL 4 MG/2 ML VIAL IV PRN (21:07)
[2024-12-30] MEDS ORDERED: METOPROLOL SUCCINATE XL 50 MG TAB PO SCH (10:00)
== END 2024-12-29 21:10 | disposition short-term general hospital (02) | DRG 871 ==
LOC: ER 18:53 → EDBD 18:53 → OVERFLOW 12-27 00:51 → EDBD 12-27 00:51 → MERGE 12-27 00:51 → TELE-EAST 12-27 05:43
PROVIDERS: ADMIT Nurse Practitioner Acute Care; ATTEND Nurse Practitioner Acute Care
DX: A41.50 Gram-negative sepsis, unspecified (principal); G93.41 Metabolic encephalopathy; J15.9 Unspecified bacterial pneumonia; J96.01 Acute respiratory failure with hypoxia; N17.0 Acute kidney failure with tubular necrosis; I50.23 Acute on chronic systolic (congestive) heart failure; N18.6 End stage renal disease; I21.A1 Myocardial infarction type 2; J15.69 Pneumonia due to other Gram-negative bacteria; N39.0 Urinary tract infection, site not specified; E87.20 Acidosis, unspecified; I13.2 Hypertensive heart and chronic kidney disease with heart failure and with stage 5 chronic kidney disease, or end stage renal disease; E11.65 Type 2 diabetes mellitus with hyperglycemia; Z96.651 Presence of right artificial knee joint; E66.01 Morbid (severe) obesity due to excess calories; I36.1 Nonrheumatic tricuspid (valve) insufficiency; E11.22 Type 2 diabetes mellitus with diabetic chronic kidney disease; E78.5 Hyperlipidemia, unspecified; Z79.4 Long term (current) use of insulin; Z68.37 Body mass index [BMI] 37.0-37.9, adult; Z87.891 Personal history of nicotine dependence; Z86.73 Personal history of transient ischemic attack (TIA), and cerebral infarction without residual deficits; Z79.899 Other long term (current) drug therapy; Z74.01 Bed confinement status
CPT/HCPCS: 36415; 70450; 71045; 76775; 78582; 80048; 80053; 80061; 80307; 80320; 80329; 81001; 82570; 82962; 83036; 83605; 83690; 83735; 84156; 84300; 84443; 84484; 85025; 85379; 85610; 85730; 87040; 87086; 93005; 93306; 93970; 96365; 97163; 99291; G0378; J1815; J2185; J2405